=== PATIENT | female | born 1965 | race Caucasian/White ===

== ENCOUNTER 2017-05-17 14:37 | Emergency (ER) | payer MEDICAID, SELFPAY ==
[2017-05-17 14:38] VITALS: BP 155/81; PULSE 76; RESP 17; TEMP 36.8; O2SAT 100; BMI 29.5
[2017-05-17 15:03] VITALS: O2SAT 100
--- NOTE | 2017-05-17 15:03 | EKG12_ITS ---
Test Reason : GEN ILLNESS Blood Pressure : / mmHG Vent. Rate : 058 BPM Atrial Rate : 058 BPM P-R Int : 140 ms QRS Dur : 078 ms QT Int : 394 ms P-R-T Axes : 023 000 063 degrees QTc Int : 386 ms Sinus bradycardia Septal infarct , age undetermined Abnormal ECG Confirmed by NICHOLAS WHITE, SOHAN ([id number]), associate entertainment editor PAVITHRA CARO ([id number]) on 05/21/2017 2:32:33 PM Referred By: JOSEPH Confirmed By:SOHAN PETERSON MD
--- NOTE | 2017-05-17 15:06 | ED.VISSUMM ---
- ER Visit Summary Date of Service: 05/17/17 Chief Complaint: [] Fatigue since she is going to pass out symptoms for years History of Present Illness: The patient is a 51 F [] reports that 2 weeks ago she slipped on ice she has had a lumbar back pain, addition she has other musculoskeletal pains involving her shoulders neck. These have been exacerbated since the fall further she has a's history of syncope near syncope and she feels that when she stands up she feels if she going to pass out she has not passed out, he did not fall or injure herself except slipping on ice as above she has had extensive prior evaluation for the sense of syncope according to her record she has had negative cardiac cath negative cardiac tilt table test, negative cardiac echogram, she reports she had additional tests in [place] that included other echograms other cardiac studies and she wore a property assessment monitor for a month and was told there was no clear etiology for her sense of his near syncope. She has no history of NV PE or DVT review of systems a been negative It is possible that the back pain is causing her to feel fatigued and exacerbating her sense of chronic syncope Physical Examination: [] Signs are normal she is awake and alert her head exams normal neck is normal lungs are clear heart tones are normal abdomen soft nontender she has full range of motion of all 4 extremities. Her back she has vague low lumbar back pain no T spine pain cervical spine pain and no headache no head trauma her NIH is actually 0 Test Results: [] Emergency Department Course and Treatment: [] Conversation with the patient she has chronic sense of fatigue and weakness and near passing out sensation she is actually never passed out she has a prior negative extensive evaluation as above I explained to obtain screening labs lumbar spine x-ray IV fluids and proceed from there she is currently taking Tylenol and Motrin for the different musculoskeletal pain she has Patient studies EKGs are all generally unremarkable see those reports, the lumbar spine x-ray show multilevel DJD no acute fracture the DJD appears stable All the above to the patient and her explained at this time she can stay on her all of her medications including ibuprofen and Tylenol for her back pain and other musculoskeletal painful areas, we discussed this chronic sense of fatigue and sense of near syncope had an extensive prior negative workup and there is nothing additionally can be done to the emergency department and have asked her to follow-up for all of her complaints with her physicians in the next few days Treatment Plan: [] Disposition: [] Stable Impression: [] back tender fourdrinier pain related to fall DJD lumbar spine, history of fatigue and history of sense of wanting to pass out This note was generated with Stream dictation software. It may contain incorrect words, spelling, and punctuation that were not noted in review of the chart prior to signing ED Disposition - Plan for ED Patient: Chief Complaint: General Illness Referrals: Care Physician,No Primary [Primary Care Provider] -
--- NOTE | 2017-05-17 15:15 | RAD_ITS ---
STUDY: X-RAY CHEST REASON FOR EXAM: Female, 51 years old. Patient fell 1 week ago. Pain in ribs and lower back. TECHNIQUE: Single AP portable view of the chest. COMPARISON: 08.08.16 FINDINGS: The lungs are clear and expanded. There is no demonstrated pleural abnormality. There is mild cardiac enlargement. Normal mediastinum and verna. Normal visualized pulmonary arteries. Normal visualized aortic arch and descending thoracic aorta. Normal visualized thoracic spine. Normal visualized ribs, clavicles, and shoulders. There is no demonstrated abnormality of the visualized soft tissue structures of the upper abdomen. RAD/Chest 1 View (Portable) IMPRESSION: There is mild cardiac enlargement. Electronically Signed: Ranjit Marquez MD at 16:20 EST , Service support ,
--- NOTE | 2017-05-17 15:17 | RAD_ITS ---
STUDY: X-RAY - LUMBAR SPINE REASON FOR EXAM: Female, 51 years old. Patient fell 1 week ago. Pain entire lower back. TECHNIQUE: 3 view(s) of the lumbar spine were obtained. COMPARISON: 05/19/2012 FINDINGS: Normal lumbar lordosis. There is scoliosis. There is a normal alignment of the vertebrae. Stool throughout the colon. There is multilevel endplate spondylosis of the lumbar vertebrae. There is multi-level degenerative disc disease with multi-level disc space narrowing. The soft tissue structures are unremarkable. RAD/Lumbar Spine 2 or 3 Views IMPRESSION: Degenerative changes of the spine, as detailed above. These are stable. Electronically Signed: Ranjit Marquez MD at 16:22 EST , Service support ,
[2017-05-17 15:18] LABS: Absolute Lymphocyte Count 1.88 X10^3/ul (0.83-4.51); Absolute Neutrophil Count 3.7 X10^3/uL (2.0-7.7); Basophil# 0.02 X10^3/uL; Basophil% 0.3 % (0-1); Eosinophil# 0.17 X10^3/uL; Eosinophils% 2.6 % (0-5); Hematocrit 40.6 % (37-47); Hemoglobin 13.3 g/dl (12.0-15.0); Lymphocyte # 1.88 X10^3/ul (4.0); Lymphocyte % 28.9 % (19-41); Mean Corp Hgb Conc 32.8 g/gl (32-36); Mean Corpuscular Hgb 30.4 pg (27.0-32.0); Mean Corpuscular Volume 92.7 fL (81-99); Mean Platelet Vol. 9.1 fl (6.2-12.0); Monocyte# 0.69 X10^3/uL; Monocyte% 10.6 % (0-10); Neutrophil # 3.73 X10^3/uL (2.7-7.7); Neutrophil % 57.4 % (47-70); Platelet Count 392 K/mm3 (150-450); RBC Distribution Width CV 12.6 % (11.6-14.6); RBC Distribution Width SD 42.5 fl (35.1-43.9); Red Blood Count 4.38 M/mm3 (4.2-5.4); White Blood Count 6.5 K/mm3 (4.4-11.0)
[2017-05-17 15:26] LABS: POSITIVE COUNT NO; POSITIVE DIFFERENTIAL NO; POSITIVE MORPHOLOGY NO
[2017-05-17] MEDS: 0.9% Normal Saline 1,000 ML 250 ML IV (15:31)
[2017-05-17 15:47] LABS: Anion Gap 8 (5-15); BUN 14 mg/dL (7-18); BUN/Creat Ratio 16.5 RATIO (10-20); Calcium,Total 8.8 mg/dL (8.5-10.1); Chloride 109 mmol/L (98-107); Creatinine, Serum 0.85 mg/dL (0.55-1.02); EST Glomerular Filtration Rate 75 mL/min (>60); Est Glom Filt Rate - Afr Amer 91 mL/min (>60); Estimated Creatinine Clearance 81.83 ml/min; Glucose 90 mg/dL (74-106); Potassium 3.8 mmol/L (3.5-5.1); Sodium Level 140 mmol/L (136-145)
--- NOTE | 2017-05-17 16:41 | ED.DEP ---
ED Disposition - Plan for ED Patient: Chief Complaint: General Illness Instructions: Relieving Back Pain, ED Dizziness UKO, ED Syncope Vasovagal, ED Near Syncope Unkn, ED Vertigo Unspecified Referrals: Care Physician,No Primary [Primary Care Provider] - Andreas Conroy MD [STAFF PHYSICIAN] -
[2017-05-17 16:59] VITALS: BP 110/61; PULSE 66; RESP 16; O2SAT 98
== END 2017-05-17 17:00 | disposition home or self-care (01) ==
PROVIDERS: Emergency Provider Emergency Medicine
DX: M54.5 Low back pain (principal); M47.896 Other spondylosis, lumbar region; R55 Syncope and collapse; Z79.899 Other long term (current) drug therapy
CPT/HCPCS: 71045; 72100; 80048; 84484; 85025; 93005; 96360; 99284; J7030; A4216

== ENCOUNTER 2017-07-18 12:04 | Emergency (ER) | payer MEDICAID, SELFPAY ==
[2017-07-18 12:05] VITALS: BP 160/102; PULSE 84; RESP 14; TEMP 36.9; O2SAT 100; BMI 29.5
--- NOTE | 2017-07-18 12:41 | ED.VISSUMM ---
- ER Visit Summary Date of Service: 07/18/17 Chief Complaint: Vaginal bleeding that started last evening at 2100. History of Present Illness: The patient is a 51 F who states she menstruates monthly. She is sexually active. She states she is having severe mid lower cramping abdominal/pelvic pain. She states she is saturating a tampon per hour. She reports orthostatic symptoms and everything in my power to prevent from passing out. She denies passage of clots. She denies shortness of breath or dyspnea on exertion. She denies chest pain. She denies orthopnea or PND. She denies bruising easily or problems with bleeding. She is on no anticoagulant. She has not had a pelvic exam in greater than 5 years. She states she has never had an abnormal Pap smear. Physical Examination: Pleasant middle-aged woman with an elevated blood pressure 160/102. HEENT exam is unremarkable. Conjunctive is pink. Heart is regular without murmur, gallop or rub. S1 and S2 are normal. Lungs are clear to auscultation with good movement of air bilaterally. Abdomen is slightly prominent with pain to palpation suprapubic region. There is no guarding or rebound tenderness. There are no bruising or rash noted. There is no CVA tenderness noted. Pelvic exam was performed. There is blood noted in the vaginal vault. The cervix and also appear irregular. Bimanual exam is remarkable for regular texture to the cervix and an enlarged uterus approximately size of a grapefruit. There is no cervical motion tenderness. Test Results: See is unremarkable. Serum test is negative. Ultrasound reveals a retro-verted uterus with a thickened endometrium. Uterus is slightly enlarged. Emergency Department Course and Treatment: IV was established. Orthostatic vital signs were obtained. CBC was obtained to evaluate her H&H and a pelvic exam was ordered. Awaiting female ultimate hoops scoreboard operator In light of the pelvic findings and ultrasound was obtained to evaluate the enlarged tender uterus. Treatment Plan: Referral to Dr. Lexii Brooks since she is a [facility] patient. Disposition: Discharged home with appropriate home-going instruction and anti-inflammatory agents for her discomfort Impression: Abnormal heavy painful vaginal bleeding This note was generated with Superbacation software. It may contain incorrect words, spelling, and punctuation that were not noted in review of the chart prior to signing ED Disposition - Plan for ED Patient: Disposition: Home or Assisted Living Chief Complaint: Vag Bleeding Instructions: ED Bleed Irregular Vaginal Prescriptions: Naproxen [Naprosyn] 500 mg PO BID #14 tab Referrals: Care Physician,No Primary [Primary Care Provider] - Lexii Brooks MD [STAFF PHYSICIAN] - 3-5 Days Additional Instructions: Prescription was electronically transmitted to [facility] pharmacy; the pharmacy you designated as your preferred pharmacy
--- NOTE | 2017-07-18 12:44 | ED.DCSUM_ITS ---
- ER Visit Summary Date of Service: 07/18/17 Chief Complaint: Vaginal bleeding that started last evening at 2100. History of Present Illness: The patient is a 51 F who states she menstruates monthly. She is sexually active. She states she is having severe mid lower cramping abdominal/pelvic pain. She states she is saturating a tampon per hour. She reports orthostatic symptoms and everything in my power to prevent from passing out. She denies passage of clots. She denies shortness of breath or dyspnea on exertion. She denies chest pain. She denies orthopnea or PND. She denies bruising easily or problems with bleeding. She is on no anticoagulant. She has not had a pelvic exam in greater than 5 years. She states she has never had an abnormal Pap smear. Physical Examination: Pleasant middle-aged woman with an elevated blood pressure 160/102. HEENT exam is unremarkable. Conjunctive is pink. Heart is regular without murmur, gallop or rub. S1 and S2 are normal. Lungs are clear to auscultation with good movement of air bilaterally. Abdomen is slightly prominent with pain to palpation suprapubic region. There is no guarding or rebound tenderness. There are no bruising or rash noted. There is no CVA tenderness noted. Pelvic exam was performed. There is blood noted in the vaginal vault. The cervix and also appear irregular. Bimanual exam is remarkable for regular texture to the cervix and an enlarged uterus approximately size of a grapefruit. There is no cervical motion tenderness. Test Results: See is unremarkable. Serum test is negative. Ultrasound reveals a retro-verted uterus with a thickened endometrium. Uterus is slightly enlarged. Emergency Department Course and Treatment: IV was established. Orthostatic vital signs were obtained. CBC was obtained to evaluate her H&H and a pelvic exam was ordered. Awaiting female acoustic intelligence specialist In light of the pelvic findings and ultrasound was obtained to evaluate the enlarged tender uterus. Treatment Plan: Referral to Dr. Lexii Brooks since she is a [facility] patient. Disposition: Discharged home with appropriate home-going instruction and anti- inflammatory agents for her discomfort Impression: Abnormal heavy painful vaginal bleeding This note was generated with PhotoTheraation software. It may contain incorrect words, spelling, and punctuation that were not noted in review of the chart prior to signing ED Disposition - Plan for ED Patient: Disposition: Home or Assisted Living Chief Complaint: Vag Bleeding Instructions: ED Bleed Irregular Vaginal Prescriptions: Naproxen [Naprosyn] 500 mg PO BID #14 tab Referrals: Care Physician,No Primary [Primary Care Provider] - Lexii Brooks MD [STAFF PHYSICIAN] - 3-5 Days Additional Instructions: Prescription was electronically transmitted to [facility] pharmacy; the pharmacy you designated as your preferred pharmacy
[2017-07-18 12:57] LABS: Absolute Lymphocyte Count 1.91 X10^3/ul (0.83-4.51); Absolute Neutrophil Count 5.1 X10^3/uL (2.0-7.7); Basophil# 0.03 X10^3/uL; Basophil% 0.4 % (0-1); Eosinophil# 0.17 X10^3/uL; Eosinophils% 2.1 % (0-5); Hematocrit 42.1 % (37-47); Hemoglobin 14.2 g/dl (12.0-15.0); Lymphocyte # 1.91 X10^3/ul (4.0); Mean Corp Hgb Conc 33.7 g/gl (32-36); Mean Corpuscular Hgb 31.5 pg (27.0-32.0); Mean Corpuscular Volume 93.3 fL (81-99); Mean Platelet Vol. 9.1 fl (6.2-12.0); Monocyte# 0.76 X10^3/uL; Monocyte% 9.6 % (0-10); Neutrophil # 5.05 X10^3/uL (2.7-7.7); Neutrophil % 63.5 % (47-70); Platelet Count 383 K/mm3 (150-450); RBC Distribution Width CV 13.3 % (11.6-14.6); RBC Distribution Width SD 44.1 fl (35.1-43.9); Red Blood Count 4.51 M/mm3 (4.2-5.4)
[2017-07-18 12:59] LABS: POSITIVE COUNT NO; POSITIVE DIFFERENTIAL NO; POSITIVE MORPHOLOGY NO
--- NOTE | 2017-07-18 13:03 | US_ITS ---
STUDY: ULTRASOUND OF THE FEMALE PELVIS - COMPLETE REASON FOR EXAM: Female, 51 years old. Abnormal uterine bleeding. Enlarged uterus. LMP: July 17, 2017. TECHNIQUE: Transvaginal TECHNICAL QUALITY: Adequate. COMPARISON: None. FINDINGS: The uterus is retroverted and is in a midline position. The uterus measures 8.8 cm x 6.6 x 5.3 cm. There are several nabothian cysts in the cervix. The endometrium is thickened and measures 12 mm in thickness, and is heterogeneous (striated). There is no demonstrated endometrial mass. There is no demonstrated myometrial mass. I.U.D. - The patient does not have an I.U.D. The right ovary is visualized. The right ovary measures 4.2 cm x 3.5 cm x 2.2 cm. There is no right ovarian cyst or ovarian mass. There is no visualized right adnexal mass or complex lesion. There is normal arterial and normal venous vascularity. The left ovary is visualized. The left ovary measures 2.0 cm x 1.5 cm x 1.2 cm. There is no left ovarian cyst or ovarian mass. There is no visualized left adnexal mass or complex lesion. There is normal arterial and normal venous vascularity. There is no fluid in the cul-de-sac. Polycystic ovary disease: No. US/Transvaginal Non- IMPRESSION: Thickened endometrium. Electronically Signed: Nolberto Stover MD at 14:41 EDT Tel [phone], Service support ,
[2017-07-18 13:11] LABS: Pregnancy, Serum, hCG Quali. NEGATIVE Negative (0-9 Nonpreg)
[2017-07-18 15:04] VITALS: BP 116/81; PULSE 64; RESP 16; O2SAT 98
== END 2017-07-18 15:07 | disposition home or self-care (01) ==
PROVIDERS: Emergency Provider Emergency Medicine
DX: N93.9 Abnormal uterine and vaginal bleeding, unspecified (principal); N85.2 Hypertrophy of uterus; I10 Essential (primary) hypertension; E66.9 Obesity, unspecified; Z79.899 Other long term (current) drug therapy
CPT/HCPCS: 76830; 84703; 85025; 99283; A4216

== ENCOUNTER 2017-07-23 21:14 | Emergency (ER) | payer MEDICAID, SELFPAY ==
[2017-07-23 21:16] VITALS: BP 142/83; PULSE 68; RESP 20; TEMP 36.7; O2SAT 97; BMI 29.5
[2017-07-23 22:52] LABS: Amphetamine Urine VISTA NEGATIVE (<1000 ng/mL); Barbiturate Urine VISTA NEGATIVE (< 200 ng/mL); Benzodiazepine Urine VISTA NEGATIVE (< 200 ng/mL); Cocaine Urine VISTA NEGATIVE (< 300 ng/mL); Ecstacy Urine VISTA NEGATIVE (< 500 ng/mL); Methadone Urine VISTA NEGATIVE (< 300 ng/mL); PCP Urine VISTA NEGATIVE (< 25 ng/mL); THC Urine VISTA NEGATIVE (< 50 ng/mL); Vista UDS pH Range 6
--- NOTE | 2017-07-23 22:52 | ED.DCSUM_ITS ---
- ER Visit Summary Date of Service: 07/23/17 Chief Complaint: [] Feeling overwhelmed and anxious History of Present Illness: The patient is a 51 F stated she has been feeling overwhelmed and anxious for last couple years. She has been dealing with somatic dysfunction that has been worked up multiple times in cannot find a reason for her physical symptoms. She has a new doctor that she is going to see August 20. She has been feeling stress from the situational factors. No counselor would requesting one. She is no longer working. She does not drink or do illegal drugs. She is not suicidal or homicidal. Physical Examination: Vital signs reviewed General: Well-nourished well-developed Head: Normocephalic atraumatic Eyes: Pupils equal round and reactive to light extraocular movements intact ENT: TMs clear no hemotympanum no trauma Neck: Nontender full range of motion Cardiovascular: Regular rate rhythm no murmurs normal S1-S2 Respiratory: No distress clear to auscultation bilaterally chest nontender Abdomen: Soft nontender nondistended normal bowel sounds no masses Back: Nontender no CVA tenderness Extremities: Nontender active range of motion ?4 extremities no trauma Skin: Normal color no trauma Neuro alert oriented cranial nerves II through XII intact normal strength sensation reflexes Test Results: [] Emergency Department Course and Treatment: [] Discussed with the patient we can give her referral to counseling center. I do not feel she needs to be emergently seen. She will follow-up as an outpatient. This appears to be just emotional lability Treatment Plan: [] Disposition: [] Impression: [] Emotional lability This note was generated with [employer] dictation software. It may contain incorrect words, spelling, and punctuation that were not noted in review of the chart prior to signing ED Disposition - Plan for ED Patient: Chief Complaint: Mental Health Referrals: Care Physician,No Primary [Primary Care Provider] -
--- NOTE | 2017-07-23 22:52 | ED.DEP ---
ED Disposition - Plan for ED Patient: Disposition: Home or Assisted Living Chief Complaint: Mental Health Instructions: Your Body's Response to Anxiety Referrals: Care Physician,No Primary [Primary Care Provider] - Counseling,Center [GROUP OF PHYSICIANS] -
[2017-07-23 22:57] VITALS: PULSE 65; RESP 18
== END 2017-07-23 23:00 | disposition home or self-care (01) ==
PROVIDERS: Emergency Provider Emergency Medicine
DX: R45.86 Emotional lability (principal); I10 Essential (primary) hypertension; E66.9 Obesity, unspecified; Z79.899 Other long term (current) drug therapy; Z86.711 Personal history of pulmonary embolism
CPT/HCPCS: 80307; 99283

== ENCOUNTER → 2017-09-12 17:18 | Outpatient (CLI) | payer MEDICAID, SELFPAY ==
--- NOTE | 2017-09-12 15:30 | BRBX_PTH ---
PATIENT: PARDEEP GUNN LOC: [facility] U#:[id number] AGE/SX: 59/F ROOM: RE09/12/[address]: Dr. Radha Fajardo MD : [id number] BED: DIS: SPEC #: [id number] RECD: 09/15/17 07:44 STATUS: MEGHAN MINA #: [id number] PAULINA: 09/12/17 15:[address]: Radha Fajardo DEPT: SURGICAL PATHOLOGY RECD BY: Luis A Almonte ENTERED: 09/15/17 07:44 SP TYPE: BREAST BX OTHR DR: No Primary Care Phys Tissues: Left breast, NOS Procedures: Surgery Specimen Level IV HEADER OPERATION: Ultrasound-guided left breast needle core biopsy PRE-OP DIAGNOSIS: Abnormal mammogram/ultrasound TISSUE SUBMITTED: Left breast needle core biopsy ISCHEMIC TIME: 5 minutes FIXATION TIME: 76 hours MICROSCOPIC DIAGNOSIS Left breast, ultrasound-guided needle core biopsy: Fragments of fatty benign breast tissue with focal dense fibrosis and changes suggestive of fibroadenoma. Negative for atypia or malignancy. SOLANGE:josiah 09/16/17 COMMENT Correlation with clinical, radiologic findings and appropriate follow up are necessary. MICROSCOPIC DESCRIPTION Slides are reviewed. GROSS DESCRIPTION Received in fixative is one container labeled with the patient's name and designated left breast biopsy. The specimen consists of multiple elongated fragments of vincent-yellow fibroadipose tissue that in aggregate measure 2 x 1 x 0.1 cm. The entire specimen is submitted in one cassette. / SJ:josiah 09/15/17 TC:5 CPT: 21844
== END ==
PROVIDERS: Visit Provider Surgery
DX: R92.8 Other abnormal and inconclusive findings on diagnostic imaging of breast (principal)
CPT/HCPCS: 88305

== ENCOUNTER 2017-10-13 12:56 | Emergency (ER) | payer MEDICAID, SELFPAY ==
[2017-10-13 12:57] VITALS: BP 123/83; PULSE 69; RESP 18; TEMP 36.6; O2SAT 99; BMI 30.9
--- NOTE | 2017-10-13 16:09 | EKG12_ITS ---
Test Reason : CP Blood Pressure : / mmHG Vent. Rate : 063 BPM Atrial Rate : 063 BPM P-R Int : 144 ms QRS Dur : 092 ms QT Int : 392 ms P-R-T Axes : -15 -06 055 degrees QTc Int : 401 ms Normal sinus rhythm Nonspecific ST abnormality Abnormal ECG Confirmed by KRISTIAN WHITE, DREW ([id number]), purchasing expeditor PAVITHRA CARO ([id number]) on 10/15/2017 2:08:57 PM Referred By: Matt Couch Confirmed By:DREW TOWNSEND MD
--- NOTE | 2017-10-13 16:10 | RAD_ITS ---
STUDY: X-RAY CHEST REASON FOR EXAM: Female, 52 years old. Weakness, chest pain TECHNIQUE: PA and lateral views of the chest. COMPARISON: 05/17/17 FINDINGS: The lungs are clear and expanded. There is no demonstrated pleural abnormality. Normal size heart. Normal mediastinum and verna. Normal visualized pulmonary arteries. Normal visualized aortic arch and descending thoracic aorta. Normal visualized thoracic spine. Normal visualized ribs, clavicles, and shoulders. There is no demonstrated abnormality of the visualized soft tissue structures of the upper abdomen. RAD/Chest 1 View (Portable) IMPRESSION: Normal x-ray examination of the chest. Electronically Signed: Eduin Allison MD at 16:19 EDT , Service support ,
[2017-10-13 16:23] VITALS: BP 138/71; PULSE 58; RESP 22; O2SAT 99
[2017-10-13] MEDS: Aspirin 81 MG TAB.CHEW 324 MG PO (16:31)
[2017-10-13 16:33] VITALS: O2SAT 100
[2017-10-13 16:54] LABS: Absolute Lymphocyte Count 2.15 X10^3/ul (0.83-4.51); Basophil# 0.02 X10^3/uL; Basophil% 0.2 % (0-1); Eosinophil# 0.07 X10^3/uL; Eosinophils% 0.7 % (0-5); Hematocrit 42.4 % (37-47); Hemoglobin 14.3 g/dl (12.0-15.0); Lymphocyte # 2.15 X10^3/ul (4.0); Lymphocyte % 21.5 % (19-41); Mean Corp Hgb Conc 33.7 g/gl (32-36); Mean Corpuscular Hgb 31.6 pg (27.0-32.0); Mean Corpuscular Volume 93.6 fL (81-99); Mean Platelet Vol. 9.5 fl (6.2-12.0); Monocyte# 0.72 X10^3/uL; Monocyte% 7.2 % (0-10); Neutrophil # 7.04 X10^3/uL (2.7-7.7); Neutrophil % 70.2 % (47-70); Platelet Count 381 K/mm3 (150-450); RBC Distribution Width CV 12.8 % (11.6-14.6); RBC Distribution Width SD 42.6 fl (35.1-43.9); Red Blood Count 4.53 M/mm3 (4.2-5.4)
[2017-10-13 17:04] LABS: POSITIVE COUNT NO; POSITIVE DIFFERENTIAL NO; POSITIVE MORPHOLOGY NO
[2017-10-13 17:09] LABS: Anion Gap 10 (5-15); BUN 6 mg/dL (7-18); BUN/Creat Ratio 7.8 RATIO (10-20); Chloride 107 mmol/L (98-107); Creatinine, Serum 0.77 mg/dL (0.55-1.02); EST Glomerular Filtration Rate 83 mL/min (>60); Est Glom Filt Rate - Afr Amer 101 mL/min (>60); Estimated Creatinine Clearance 86.21 ml/min; Glucose 91 mg/dL (74-106); Potassium 3.6 mmol/L (3.5-5.1); Sodium Level 143 mmol/L (136-145)
--- NOTE | 2017-10-13 17:25 | ED.DCSUM_ITS ---
- ER Visit Summary Date of Service: 10/13/17 Chief Complaint: Headache, nausea, presyncope History of Present Illness: The patient is a 52 F who has had the above symptoms for 2 years. They have been getting worse over the past week. She states that she feels near syncopal and nauseous when she wakes up after sleeping and after naps. She saw her doctor today who told her to come in because he felt that she is not getting enough oxygen to her brain. She wore a Holter monitor a year ago and it showed episodes of bradycardia which were correlating with her symptoms but she never followed up after that. She has no chest pain or shortness of breath. Physical Examination: Vital signs reviewed. HEENT exam unremarkable. Heart is regular rate and rhythm without murmurs. Lungs are clear to auscultation. Abdomen is soft and nontender. Extremities reveal no edema. Skin exam normal. Neurologic exam normal. Test Results: EKG was sinus rhythm with a rate of 63. No ST changes. Chest x- ray normal. Labs are normal Emergency Department Course and Treatment: I explained the patient that her workup here today is normal. She is wondering about a ultrasound of her carotid arteries to see if this would evaluate the blood flow to her brain. I told her that there is no indication for this emergently. She needs to follow- up with a commercial relief driver. She will be given cardiology follow-up Treatment Plan: [] Disposition: Discharge Impression: Near syncope This note was generated with Scuttledog dictation software. It may contain incorrect words, spelling, and punctuation that were not noted in review of the chart prior to signing ED Disposition - Plan for ED Patient: Chief Complaint: Weakness Referrals: Zay Alvarado MD [Primary Care Provider] -
--- NOTE | 2017-10-13 17:25 | ED.DEP ---
ED Disposition - Plan for ED Patient: Disposition: Home or Assisted Living Chief Complaint: Weakness Instructions: ED Near Syncope Unkn Referrals: Zay Alvarado MD [Primary Care Provider] - Steve Sandoval MD [STAFF PHYSICIAN] -
[2017-10-13 18:18] VITALS: BP 126/75; PULSE 61; RESP 17; O2SAT 97
--- NOTE | 2017-10-13 18:36 | ED.RN ---
at 1825 this rn went to d/c pt. pt reports to this rn concern that her sx are worsening over the past year. pt reports bradycardia when sleeping, and other arrhythmias. pt informed of results by dr. ferrera and cleared for d/c. this rn spoke with pt about her not following up with care a year ago when she had been admitted to [facility]. this rn and pt spoke about how long sx have been going on and that they are intermittent, not constant. pt educated not to drive if feeling worse and to return to ed with any new or worsened sx. this rn spoke with dr. ferrera concerning pt sx and visit today. dr. ferrera reports educating pt on importance of follow up with cardiology, and that pt does not meet admission criteria. this rn informed charge nurse hoang of pt concerns, hoang to address issue. will continue to monitor.
== END 2017-10-13 18:19 | disposition home or self-care (01) ==
PROVIDERS: Emergency Provider Emergency Medicine; Family Provider Family Medicine; PCP Family Medicine
DX: R55 Syncope and collapse (principal); R00.1 Bradycardia, unspecified; I10 Essential (primary) hypertension; Z79.899 Other long term (current) drug therapy
CPT/HCPCS: 71045; 80048; 84484; 85025; 93005; 99285; A4216

== ENCOUNTER 2017-11-17 08:13 | Day surgery (SDC) | payer MEDICAID, SELFPAY ==
[2017-11-14 13:13] VITALS: BMI 31.0
[2017-11-14 16:12] LABS: Hematocrit 39.3 % (37-47); Hemoglobin 13.3 g/dl (12.0-15.0); Mean Corp Hgb Conc 33.8 g/gl (32-36); Mean Corpuscular Hgb 31.9 pg (27.0-32.0); Mean Corpuscular Volume 94.2 fL (81-99); Mean Platelet Vol. 9.3 fl (6.2-12.0); Platelet Count 326 K/mm3 (150-450); RBC Distribution Width CV 13.1 % (11.6-14.6); RBC Distribution Width SD 45.2 fl (35.1-43.9); Red Blood Count 4.17 M/mm3 (4.2-5.4); White Blood Count 7.5 K/mm3 (4.4-11.0)
[2017-11-14 16:13] LABS: Scan Indicated on CBC? Y/N NO
[2017-11-14 16:35] LABS: Anion Gap 10 (5-15); BUN 8 mg/dL (7-18); Calcium,Total 8.5 mg/dL (8.5-10.1); Chloride 109 mmol/L (98-107); EST Glomerular Filtration Rate 80 mL/min (>60); Est Glom Filt Rate - Afr Amer 96 mL/min (>60); Estimated Creatinine Clearance 82.98 ml/min; Glucose 89 mg/dL (74-106); Sodium Level 144 mmol/L (136-145)
== END 2017-11-17 10:14 ==
LOC: CLSP 08:14
PROVIDERS: Family Provider Family Medicine; PCP Family Medicine; Visit Provider Internal Medicine Cardiovascular Disease
DX: R55 Syncope and collapse (principal); R00.1 Bradycardia, unspecified; I10 Essential (primary) hypertension; E66.9 Obesity, unspecified
CPT/HCPCS: 33282; 36415; 80048; 85027; 99152; J7040

== ENCOUNTER 2018-01-17 20:44 | Emergency (ER) | payer MEDICAID, SELFPAY ==
[2018-01-17 20:45] VITALS: BP 162/79; PULSE 74; RESP 20; TEMP 36.7; O2SAT 96; BMI 30.4
--- NOTE | 2018-01-17 21:36 | ED.VISSUMM ---
- ER Visit Summary Date of Service: 01/17/18 Chief Complaint: Anxiety History of Present Illness: The patient is a 52 F who presents with anxiety. She has been under significantly more stress today. Her is in the hospital after a heart attack. She also states that she is having issues with her son. She complains of headache increased blood pressure nausea and mild chest pain. She did have some improvement of her headache with Tylenol. She on multiple occasions repetitively stated that she really does feel this is all related to her anxiety and she just does not know what to do about her anxiety. Physical Examination: Afebrile blood pressure 162/79 vitals otherwise normal Heart regular rate and rhythm Lungs are clear Abdomen soft Alert Tearful and anxious Test Results: EKG shows sinus rhythm at a rate of 67 with septal Q waves. Emergency Department Course and Treatment: I discussed with the patient that her symptoms certainly could be related to anxiety but I cannot rule out other pathology without workup. I recommended laboratory studies and chest x-ray. The patient refuses. She does understand that I cannot rule out more serious pathology. She vocalized understanding. She is insistent that this is all related to anxiety and would just like treated for anxiety. Given her acute significant stressors I do not feel benzodiazepines would be an appropriate. She does not want to take a dose here because she has to drive home. She was given a prescription and ongoing medication. We will give her a short course of Ativan and she was advised to follow-up with her primary care physician. She does understand return for new or worsening symptoms and was discharged home. Treatment Plan: [] Disposition: Discharge Impression: Stress reaction Chest pain Palpitations This note was generated with [employer] dictation software. It may contain incorrect words, spelling, and punctuation that were not noted in review of the chart prior to signing ED Disposition - Plan for ED Patient: Chief Complaint: Palpitations Referrals: Zay Alvarado MD [Primary Care Provider] -
--- NOTE | 2018-01-17 21:38 | ED.DEP ---
ED Disposition - Plan for ED Patient: Chief Complaint: Palpitations Instructions: ED Palpitations, ED Stress React Prescriptions: Lorazepam [Ativan] 1 mg PO TID #6 tab Referrals: Zay Alvarado MD [Primary Care Provider] -
--- NOTE | 2018-01-17 21:39 | EKG12_ITS ---
Test Reason : CP Blood Pressure : / mmHG Vent. Rate : 067 BPM Atrial Rate : 067 BPM P-R Int : 138 ms QRS Dur : 084 ms QT Int : 372 ms P-R-T Axes : 054 -03 064 degrees QTc Int : 393 ms Normal sinus rhythm with sinus arrhythmia Septal infarct , age undetermined Abnormal ECG Confirmed by NICHOLAS WHITE, SOHAN ([id number]), editor farm journal ULYSSES LYN ([id number]) on 01/20/2018 11:20:01 AM Referred By: JOCELYN/NAZARIO Confirmed By:SOHAN PETERSON MD
[2018-01-17] MEDS: LORazepam 1 MG Tablet 2 MG PO (21:58)
[2018-01-17 22:03] VITALS: BP 138/81; PULSE 62; RESP 17; O2SAT 94
== END 2018-01-17 22:04 | disposition home or self-care (01) ==
LOC: ED 21:47
PROVIDERS: Emergency Provider Emergency Medicine; Family Provider Family Medicine; PCP Family Medicine
DX: F43.9 Reaction to severe stress, unspecified (principal); R07.9 Chest pain, unspecified; R00.2 Palpitations; R51 Headache; R11.0 Nausea; R03.0 Elevated blood-pressure reading, without diagnosis of hypertension; Z79.899 Other long term (current) drug therapy
CPT/HCPCS: 93005; 99282

== ENCOUNTER 2018-07-01 20:06 | Emergency (ER) | payer MEDICAID, SELFPAY ==
[2018-05-05 14:32] VITALS: BMI 31.7
[2018-07-01] VITALS (7 sets, daily range): BP systolic 119–144; BP diastolic 64–81; PULSE 57–76; RESP 16–25; TEMP 37–37.6; O2SAT 57–100; BMI 32.0
--- NOTE | 2018-07-01 20:50 | CT_ITS ---
STUDY: CT ABDOMEN AND PELVIS WITHOUT CONTRAST REASON FOR EXAM: Female, 52 years old. Pain RADIATION DOSAGE (If Supplied By Facility): CTDIvol = ( 17.05 ) mGy, DLP = ( 860.62 ) mGycm TECHNIQUE: Transaxial images were obtained from the dome of the diaphragm to the symphysis pubis without oral contrast, and without intravenous contrast. Sagittal and coronal images were reconstructed. Individualized dose optimization techniques were used for this CT. COMPARISON: None. FINDINGS: Evaluation of the abdominal viscera is limited in the absence of intravenous contrast. There is atelectasis at the lung bases. The visualized portions of the heart and pericardium are within normal limits. There are no calcified gallstones present. The liver demonstrates an unremarkable unenhanced appearance. The spleen is normal in size. The pancreas demonstrates an unremarkable unenhanced appearance. The adrenal glands are within normal limits. The left kidney is located in the pelvis. There are no renal or ureteral stones. There is no hydronephrosis. Normal visualized stomach. There is no bowel obstruction or inflammation. The appendix is not visualized, but there are no findings to suggest acute appendicitis. The aorta is normal in caliber. There is an intrauterine device noted. There is no abdominal or pelvic free air, free fluid, fluid collection or lymphadenopathy. There are no destructive osseous lesions. CT/Abdomen/Pelvis without Cont IMPRESSION: No acute abdominal or pelvic pathology demonstrated on this noncontrast CT. Pelvic left kidney. Electronically Signed: Nicko Winslow, at 22:09 EDT Tel , Service support ,
--- NOTE | 2018-07-01 20:50 | EKG12_ITS ---
Test Reason : ABD PAIN Blood Pressure : / mmHG Vent. Rate : 070 BPM Atrial Rate : 070 BPM P-R Int : 138 ms QRS Dur : 084 ms QT Int : 386 ms P-R-T Axes : 039 -06 056 degrees QTc Int : 416 ms Normal sinus rhythm Septal infarct (cited on or before 17-JAN-2018), age undetermined Abnormal ECG Confirmed by KRISTIAN WHITE, DREW ([id number]), brands editor VIVEK PIERRE ([id number]) on 07/03/2018 11:00:28 AM Referred By: LAURA/GIGI Confirmed By:DREW TOWNSEND MD
--- NOTE | 2018-07-01 20:50 | RAD_ITS ---
STUDY: X-RAY CHEST REASON FOR EXAM: Female, 52 years old. Cough. TECHNIQUE: Single frontal view of the chest. COMPARISON: October 13, 2017 FINDINGS: There is grossly stable bibasilar scarring and/or atelectasis. There is mild cardiomegaly. There is a loop recorder projecting over the left cardiac border. Normal mediastinum and verna. Normal visualized pulmonary arteries. Normal visualized aortic arch and descending thoracic aorta. Normal visualized thoracic spine. Normal visualized ribs, clavicles, and shoulders. There is no demonstrated abnormality of the visualized soft tissue structures of the upper abdomen. RAD/Chest 1 View (Portable) IMPRESSION: Mild cardiomegaly. Electronically Signed: Garima Higuera MD at 21:41 EDT Tel , Service support ,
[2018-07-01 21:00] LABS: Absolute Lymphocyte Count 3.18 X10^3/ul (0.83-4.51); Absolute Neutrophil Count 5.8 X10^3/uL (2.0-7.7); Basophil# 0.02 X10^3/uL; Basophil% 0.2 % (0-1); Eosinophil# 0.18 X10^3/uL; Eosinophils% 1.8 % (0-5); Lymphocyte # 3.18 X10^3/ul (4.0); Lymphocyte % 31.9 % (19-41); Mean Corp Hgb Conc 34.1 g/gl (32-36); Mean Corpuscular Hgb 32.5 pg (27.0-32.0); Mean Corpuscular Volume 95.1 fL (81-99); Mean Platelet Vol. 9.4 fl (6.2-12.0); Monocyte# 0.75 X10^3/uL; Monocyte% 7.5 % (0-10); Neutrophil # 5.83 X10^3/uL (2.7-7.7); Neutrophil % 58.4 % (47-70); Platelet Count 348 K/mm3 (150-450); RBC Distribution Width CV 12.4 % (11.6-14.6); RBC Distribution Width SD 42.9 fl (35.1-43.9); Red Blood Count 4.31 M/mm3 (4.2-5.4)
[2018-07-01 21:02] LABS: POSITIVE COUNT NO; POSITIVE DIFFERENTIAL NO; POSITIVE MORPHOLOGY NO
[2018-07-01] MEDS: 0.9% Normal Saline 1,000 ML 1000 ML IV (21:16)
[2018-07-01 21:23] LABS: ALB/GLOB Ratio 1.2 RATIO (0.9-2.4); AST(SGOT) 32 U/L (15-37); Alanine Aminotransfer ALT/SGPT 45 U/L (13-56); Albumin, Serum 3.7 g/dL (3.2-5.0); Alkaline Phosphatase 74 U/L (45-117); Anion Gap 7 (5-15); BUN 12 mg/dL (7-18); BUN/Creat Ratio 12.1 RATIO (10-20); Calcium,Total 7.8 mg/dL (8.5-10.1); Chloride 107 mmol/L (98-107); EST Glomerular Filtration Rate 62 mL/min (>60); Est Glom Filt Rate - Afr Amer 75 mL/min (>60); Estimated Creatinine Clearance 68.77 ml/min; Globulin 3.1 g/dL (2.2-4.2); Glucose 108 mg/dL (74-106); Potassium 3.7 mmol/L (3.5-5.1); Protein, Total 6.8 g/dL (6.4-8.2); Sodium Level 138 mmol/L (136-145)
[2018-07-01 21:32] LABS: Bacteria 0 SEEN /hpf (None Seen); Mucous, Urine 0 SEEN /hpf (<or=2+); Red Blood Cells-Urine 0 SEEN /hpf (0-5); White Blood Cells 0 SEEN /hpf (0-5)
[2018-07-01 21:35] LABS: Color, Urine Yellow (Yellow); Glucose, Dipstick Normal (Normal); Ketone-Dipstick Negative (Negative); Leukocyte Esterase-Dipstick 25 /ul (Negative); Nitrite-Dipstick Negative (Negative); Occult Blood-Urine Negative /ul (Negative); Protein-Dipstick 15 mg/dl (Negative); Specific Gravity, Urine 1.015 (1.002-1.030); Urine Bilirubin Dipstick Negative (Negative); Urine Clarity Clear (Clear); Urine Urobilinogen Normal (Normal)
[2018-07-01 21:47] LABS: Lactic Acid 1.6 mmol/L (0.4-2.0)
[2018-07-01 21:56] LABS: Squamous Epithelial Cells - UA 0-5 SEEN /hpf (5-10)
[2018-07-01] MEDS: Morphine 4 MG/ML Syringe IV (22:16)
[2018-07-01] MEDS: Ondansetron 4 MG/2 ML Vial IV (22:17)
[2018-07-01 22:41] LABS: Lipase 288 U/L (73-393)
--- NOTE | 2018-07-01 23:21 | ED.VISSUMM ---
- ER Visit Summary Date of Service: 07/01/18 Chief Complaint: [Abdominal pain, body aches, cough] History of Present Illness: The patient is a 52 F [presents the emergency department 2-day history of generalized fatigue. Patient states that she is had a dry cough and just diffuse body aches. Patient complains of pain in her back and abdomen intermittently. Patient had one episode of vomiting yesterday but none since. She has not had any diarrhea. She denies any chest pain or shortness of breath. Patient has had multiple sick contacts at work. She denies sore throat or ear pain.] Physical Examination: [HEENT-PERRLA, EOMI. Cranial nerves II through XII grossly intact. TMs clear. Mucous membranes moist. No adenopathy. Cardiovascular-regular rate and rhythm without murmur or ectopy Lungs-clear to auscultation, chest wall stable without crepitus or subcu emphysema Abdomen-normoactive bowel sounds, soft. Patient has diffuse tenderness with guarding. There is no rebound, rigidity, or perineal signs. Extremities-intact ?4, normal range of motion, normal pulses, atraumatic] Test Results: [EKG obtained arrival shows sinus rhythm with a ventricular rate 70 bpm with old septal infarct noted. CBC with differential showed a white count of 10.0, hemoglobin 14, hematocrit 41, placed 348. Chemistries unremarkable. LFTs were normal. Lipase was normal. Urinalysis was normal. Troponin was less than 0.015. Lactate was normal at 1.6. Influenza was negative. Chest x-ray showed some mild cardiomegaly. CT scan of the abdomen pelvis without contrast showed nothing acute.] Emergency Department Course and Treatment: [Patient was medicated with morphine and Zofran. Patient was given normal saline.] Treatment Plan: [Patient will be given a prescription for Helotes and Zofran. Patient advised to push fluids.] Disposition: [Discharged home in stable condition] Impression: [Abdominal pain Viral syndrome] This note was generated with [employer] dictation software. It may contain incorrect words, spelling, and punctuation that were not noted in review of the chart prior to signing ED Disposition - Plan for ED Patient: Referrals: Zay Alvarado MD [Primary Care Provider] -
--- NOTE | 2018-07-01 23:23 | ED.DEP ---
ED Disposition - Plan for ED Patient: Instructions: ED Abdominal Pain Unkn Cause, ED Viral Syndrome Prescriptions: Hydrocodone Bitart/Apap 5-325 [[place] 5MG-325MG] 1 tab PO Q4H PRN PRN 2 Days #10 tab PRN Reason: Pain Ondansetron [Zofran Odt] 4 mg PO Q8H PRN PRN #10 tab PRN Reason: Nausea Referrals: Zay Alvarado MD [Primary Care Provider] - 3-5 Days
[2018-07-01] MEDS: HYDROcodone Bitartrate/Apap 5/325 Tablet PO (23:36)
[2018-07-01] MEDS: Ondansetron ODT 4 MG Tablet PO (23:38)
== END 2018-07-01 23:49 | disposition home or self-care (01) ==
PROVIDERS: Emergency Provider Emergency Medicine; Family Provider Family Medicine; PCP Family Medicine
DX: R10.9 Unspecified abdominal pain (principal); B34.9 Viral infection, unspecified; R05 Cough; R51 Headache; M54.9 Dorsalgia, unspecified; I10 Essential (primary) hypertension
CPT/HCPCS: 71045; 74176; 80053; 81001; 83605; 83690; 84484; 85025; 87804; 93005; 96361; 96374; 96375; 99285; J7030; A4216; J2405

== ENCOUNTER 2018-08-06 11:39 | Emergency (ER) | payer MEDICAID, SELFPAY ==
[2018-07-01 20:08] VITALS: BMI 32.0
[2018-08-06 11:41] VITALS: BP 148/80; PULSE 92; RESP 15; TEMP 37.5; O2SAT 100; BMI 31.8
--- NOTE | 2018-08-06 11:55 | EKG12_ITS ---
Test Reason : WEAKNESS Blood Pressure : / mmHG Vent. Rate : 088 BPM Atrial Rate : 088 BPM P-R Int : 146 ms QRS Dur : 076 ms QT Int : 352 ms P-R-T Axes : 043 -02 080 degrees QTc Int : 425 ms Normal sinus rhythm Nonspecific ST and T wave abnormality Abnormal ECG Confirmed by JOSELYN HOOPER ([id number]), society editor VIVEK PIERRE ([id number]) on 08/10/2018 2:10:49 PM Referred By: Confirmed By:JOSELYN HOOPER
--- NOTE | 2018-08-06 12:28 | CT_ITS ---
STUDY: CT BRAIN WITHOUT CONTRAST REASON FOR EXAM: Female, 52 years old. Dizziness. Shortness of breath. Fatigue. RADIATION DOSAGE (If Supplied By Facility): CTDIvol = ( 44.99 ) mGy, DLP = ( 745.49 ) mGycm TECHNIQUE: Transaxial CT imaging of the brain was performed without administration of intravenous contrast material. Individualized dose optimization techniques were used for this CT. COMPARISON: Comparison is made with prior study November 01, 2015. FINDINGS: Normal soft tissue structures. Normal calvarium. Normal size ventricles and extra-axial spaces for the patient's age. Normal white matter tracts of the cerebral hemispheres. Normal basal ganglia and thalami. Normal brainstem. Normal cerebellum. There is no intracranial hemorrhage. There are no findings of an acute ischemic infarction. Normal visualized paranasal sinuses. CT/Brain/Head without Contrast IMPRESSION: Normal unenhanced CT scan of the brain. Electronically Signed: Nolberto Stover, at 14:32 EDT , Service support ,
--- NOTE | 2018-08-06 12:28 | RAD_ITS ---
STUDY: X-RAY CHEST REASON FOR EXAM: Female, 52 years old. Increasing shortness of breath. TECHNIQUE: PA and lateral views of the chest. COMPARISON: Comparison is made with prior study dated July 01, 2018. FINDINGS: EKG liquids are seen. Hyperinflation. There is no demonstrated pleural abnormality. Normal size heart. A loop recorder device is once again seen overlying the left cardiac border. Normal mediastinum and verna. Normal visualized pulmonary arteries. Normal visualized aortic arch and descending thoracic aorta. Normal visualized thoracic spine. Normal visualized ribs, clavicles, and shoulders. There is no demonstrated abnormality of the visualized soft tissue structures of the upper abdomen. RAD/Chest PA and Lateral IMPRESSION: Hyperinflation. The lungs are clear. Electronically Signed: Nolberto Stover, at 14:12 EDT , Service support ,
--- NOTE | 2018-08-06 12:34 | ED.VISSUMM ---
- ER Visit Summary Date of Service: 08/06/18 Chief Complaint: Fatigue and shortness of breath History of Present Illness: The patient is a 52 F who presents with fatigue and shortness of breath that has been getting worse over the past 3 days. Patient states she feels like she has tightness in her chest. Patient states her breathing is worse with coughing and with going upstairs. Patient states she has been taking Mucinex with no relief. Patient went to the urgent care today and was given an aerosol. Patient states she was feeling weak and was then referred to the emergency department from the urgent care. Physical Examination: Vital signs are stable. Patient is afebrile. Patient is in no acute distress. Oral mucosa is pink and moist. Neck is supple. Trachea is midline. There is no JVD noted. Heart was regular rate and rhythm. Lungs are clear and equal bilaterally. Abdomen is soft. Bowel sounds are normal. There is some mild upper abdominal tenderness. There is no rebound or guarding noted. Cranial nerves II through XII are intact. There are no focal motor or sensory deficits noted. Test Results: EKG showed normal sinus rhythm with a rate of 88. There are no acute ST or T wave changes. There are nonspecific ST-T wave changes. There is some flattening of the T waves diffusely compared to previous EKG dated 07/01/2018. CBC, basic metabolic profile, urinalysis, d-dimer were obtained and were all normal. Emergency Department Course and Treatment: Patient was given IV fluids. Patient was feeling better on reevaluation. Patient was instructed to follow-up with her primary care physician in 5 to 7 days. Patient understood and was agreeable with the plan. All questions were answered. Disposition: Discharge home Impression: General weakness This note was generated with [employer] dictation software. It may contain incorrect words, spelling, and punctuation that were not noted in review of the chart prior to signing ED Disposition - Plan for ED Patient: Disposition: Home or Assisted Living Diagnosis: General weakness Instructions: ED Weakness [facility] [place]: Zay Alvarado MD [Primary Care Provider] - 3-5 Days
--- NOTE | 2018-08-06 12:38 | ED.DCSUM_ITS ---
- ER Visit Summary Date of Service: 08/06/18 Chief Complaint: Fatigue and shortness of breath History of Present Illness: The patient is a 52 F who presents with fatigue and shortness of breath that has been getting worse over the past 3 days. Patient states she feels like she has tightness in her chest. Patient states her breathing is worse with coughing and with going upstairs. Patient states she has been taking Mucinex with no relief. Patient went to the urgent care today and was given an aerosol. Patient states she was feeling weak and was then referred to the emergency department from the urgent care. Physical Examination: Vital signs are stable. Patient is afebrile. Patient is in no acute distress. Oral mucosa is pink and moist. Neck is supple. Trachea is midline. There is no JVD noted. Heart was regular rate and rhythm. Lungs are clear and equal bilaterally. Abdomen is soft. Bowel sounds are normal. There is some mild upper abdominal tenderness. There is no rebound or guarding noted. Cranial nerves II through XII are intact. There are no focal motor or sensory deficits noted. Test Results: EKG showed normal sinus rhythm with a rate of 88. There are no acute ST or T wave changes. There are nonspecific ST-T wave changes. There is some flattening of the T waves diffusely compared to previous EKG dated 07/01/2018. CBC, basic metabolic profile, urinalysis, d-dimer were obtained and were all normal. Emergency Department Course and Treatment: Patient was given IV fluids. Patient was feeling better on reevaluation. Patient was instructed to follow-up with her primary care physician in 5 to 7 days. Patient understood and was agreeable with the plan. All questions were answered. Disposition: Discharge home Impression: General weakness This note was generated with [employer] dictation software. It may contain incorrect words, spelling, and punctuation that were not noted in review of the chart prior to signing ED Disposition - Plan for ED Patient: Disposition: Home or Assisted Living Diagnosis: General weakness Instructions: ED Weakness [facility] [place] Referrals: Zay Alvarado MD [Primary Care Provider] - 3-5 Days
[2018-08-06] MEDS: 0.9% Normal Saline 1,000 ML 1000 ML IV (12:48)
[2018-08-06 12:58] LABS: Absolute Lymphocyte Count 1.28 X10^3/ul (0.83-4.51); Basophil# 0.01 X10^3/uL; Basophil% 0.1 % (0-1); Eosinophil# 0.06 X10^3/uL; Eosinophils% 0.7 % (0-5); Hematocrit 44.6 % (37-47); Lymphocyte # 1.28 X10^3/ul (4.0); Lymphocyte % 15.3 % (19-41); Mean Corp Hgb Conc 33.6 g/gl (32-36); Mean Corpuscular Hgb 31.4 pg (27.0-32.0); Mean Corpuscular Volume 93.3 fL (81-99); Mean Platelet Vol. 9.2 fl (6.2-12.0); Monocyte# 1.01 X10^3/uL; Monocyte% 12.1 % (0-10); Neutrophil # 5.98 X10^3/uL (2.7-7.7); Neutrophil % 71.6 % (47-70); POSITIVE COUNT NO; POSITIVE DIFFERENTIAL NO; POSITIVE MORPHOLOGY NO; Platelet Count 287 K/mm3 (150-450); RBC Distribution Width CV 12.6 % (11.6-14.6); RBC Distribution Width SD 42.5 fl (35.1-43.9); Red Blood Count 4.78 M/mm3 (4.2-5.4); White Blood Count 8.4 K/mm3 (4.4-11.0)
[2018-08-06 13:11] LABS: Anion Gap 7 (5-15); BUN 7 mg/dL (7-18); BUN/Creat Ratio 7.3 RATIO (10-20); Calcium,Total 8.8 mg/dL (8.5-10.1); Chloride 106 mmol/L (98-107); Creatinine, Serum 0.96 mg/dL (0.55-1.02); EST Glomerular Filtration Rate 65 mL/min (>60); Est Glom Filt Rate - Afr Amer 78 mL/min (>60); Estimated Creatinine Clearance 71.64 ml/min; Glucose 96 mg/dL (74-106); Potassium 3.7 mmol/L (3.5-5.1); Sodium Level 139 mmol/L (136-145)
[2018-08-06 13:12] LABS: D-Dimer Quantitative (DVT/PE) 0.27 FEU/ug/m (0.27-0.49)
[2018-08-06 13:41] LABS: Color, Urine Yellow (Yellow); Glucose, Dipstick Normal (Normal); Ketone-Dipstick Negative (Negative); Leukocyte Esterase-Dipstick 100 /ul (Negative); Mucous, Urine 0 SEEN /hpf (<or=2+); Nitrite-Dipstick Negative (Negative); Occult Blood-Urine Negative /ul (Negative); Protein-Dipstick Negative (Negative); Red Blood Cells-Urine 0 SEEN /hpf (0-5); Specific Gravity, Urine 1.005 (1.002-1.030); Squamous Epithelial Cells - UA 0 SEEN /hpf (5-10); Urine Bilirubin Dipstick Negative (Negative); Urine Clarity Clear (Clear); Urine Urobilinogen Normal (Normal)
[2018-08-06 13:49] LABS: Bacteria RARE /hpf (None Seen); White Blood Cells 0-5 SEEN /hpf (0-5); Yeast-Urine RARE /hpf (None Seen)
[2018-08-06 14:20] VITALS: BP 128/86; PULSE 72; RESP 15; O2SAT 98
[2018-08-06 15:41] VITALS: BP 140/88; PULSE 72
== END 2018-08-06 15:49 | disposition home or self-care (01) ==
PROVIDERS: Emergency Provider Emergency Medicine; Family Provider Family Medicine; PCP Family Medicine
DX: R53.1 Weakness (principal); R07.9 Chest pain, unspecified; R06.00 Dyspnea, unspecified; R51 Headache; J02.9 Acute pharyngitis, unspecified; R05 Cough; R11.0 Nausea; Z79.899 Other long term (current) drug therapy
CPT/HCPCS: 70450; 71046; 80048; 81001; 85025; 85379; 93005; 96360; 96361; 99285; J7030; A4216

== ENCOUNTER 2018-09-30 23:57 | Observation (INO) | payer MEDICAID, SELFPAY ==
[2018-09-30 23:57] VITALS: BP 132/83; PULSE 64; RESP 18; TEMP 37.3; O2SAT 100; BMI 31.5
[2018-10-01] VITALS (9 sets, daily range): BP systolic 119–148; BP diastolic 63–75; PULSE 49–67; RESP 16–20; TEMP 37–37.2; O2SAT 95–98; BMI 30.4
--- NOTE | 2018-10-01 00:02 | EKG12_ITS ---
Test Reason : CP Blood Pressure : / mmHG Vent. Rate : 061 BPM Atrial Rate : 061 BPM P-R Int : 144 ms QRS Dur : 082 ms QT Int : 382 ms P-R-T Axes : 023 -04 045 degrees QTc Int : 384 ms Normal sinus rhythm Septal infarct , age undetermined Abnormal ECG Confirmed by NICHOLAS WHITE, SOHAN ([id number]), graphics editor VIVEK PIERRE ([id number]) on 10/05/2018 1:29:39 PM Referred By: Confirmed By:SOHAN PETERSON MD
--- NOTE | 2018-10-01 00:02 | RAD_ITS ---
HISTORY: CPChest PainRAD - Chest EXAM: XR Chest 1 View: COMPARISON: August 06, 2018 FINDINGS: # of images incl. paperwork: 1 No change to left chest wall implanted cardiac monitoring lead. Old device Lungs are clear. Heart is not enlarged. Bones are normal. Pulmonary vascularity is distinct. No effusions. RAD/Chest 1 View (Portable) IMPRESSION: Normal. at 0034 Reported and signed by: Serg Mcdonnell MD Electronically Signed: Serg Mcdonnell MD at 0:33 EDT Tel , Service support ,
[2018-10-01 00:16] LABS: Absolute Lymphocyte Count 2.65 X10^3/ul (0.83-4.51); Basophil# 0.02 X10^3/uL; Basophil% 0.3 % (0-1); Eosinophil# 0.13 X10^3/uL; Eosinophils% 1.7 % (0-5); Hematocrit 39.6 % (37-47); Hemoglobin 13.4 g/dl (12.0-15.0); Lymphocyte # 2.65 X10^3/ul (4.0); Lymphocyte % 35.4 % (19-41); Mean Corp Hgb Conc 33.8 g/gl (32-36); Mean Corpuscular Hgb 32.1 pg (27.0-32.0); Mean Corpuscular Volume 94.7 fL (81-99); Mean Platelet Vol. 9.3 fl (6.2-12.0); Monocyte# 0.67 X10^3/uL; Monocyte% 8.9 % (0-10); Neutrophil % 53.4 % (47-70); Platelet Count 300 K/mm3 (150-450); RBC Distribution Width CV 12.4 % (11.6-14.6); RBC Distribution Width SD 42.6 fl (35.1-43.9); Red Blood Count 4.18 M/mm3 (4.2-5.4); White Blood Count 7.5 K/mm3 (4.4-11.0)
--- NOTE | 2018-10-01 00:16 | ED.DCSUM_ITS ---
- ER Visit Summary Date of Service: 10/01/18 Chief Complaint: Chest pain History of Present Illness: The patient is a 52 F presenting with chest pain. She states this started this evening. She states she initially noted that her blood pressure was high. She complained of tingling all over. She then deve loped pain in her midsternal and left chest. She had associated shortness of breath and diaphoresis. She had nausea with no vomiting. She was given aspirin and Zofran prior to arrival. She has a family history of early heart disease. Denies PE/DVT risk factors. She was seen at [facility] a couple of days ago for similar complaints and left AGAINST MEDICAL ADVICE. Physical Examination: Vitals are stable. Patient is afebrile. Alert no acute distress. HEENT exam is unremarkable. Neck is supple. Lungs are clear and equal bilaterally. Heart is regular rate and rhythm. Abdomen is soft nontender nondistended. Extremities are unremarkable. Skin is warm and dry. No focal neurologic deficit. Remainder of exam is unremarkable. Emergency Department Course and Treatment: EKG is sinus rhythm rate of 61 with no acute ischemic changes. Chest x-ray shows no acute process. CBC, chemistries unremarkable. Troponin is negative. On reevaluation, patient is chest pain-free. This is now her second episode in the past couple of days. She was discussed with the hospitalist for observation. Disposition: Observation Impression: Chest pain This note was generated with [employer] dictation software. It may contain incorrect words, spelling, and punctuation that were not noted in review of the chart prior to signing ED Disposition - Plan for ED Patient: Referrals: Zay Alvarado MD [Primary Care Provider] -
[2018-10-01 00:31] LABS: Anion Gap 5 (5-15); BUN 11 mg/dL (7-18); BUN/Creat Ratio 10.6 RATIO (10-20); Calcium,Total 8.4 mg/dL (8.5-10.1); Chloride 107 mmol/L (98-107); Creatinine, Serum 1.04 mg/dL (0.55-1.02); EST Glomerular Filtration Rate 59 mL/min (>60); Est Glom Filt Rate - Afr Amer 71 mL/min (>60); Estimated Creatinine Clearance 66.13 ml/min; Glucose 140 mg/dL (74-106); Potassium 3.6 mmol/L (3.5-5.1); Sodium Level 138 mmol/L (136-145)
[2018-10-01 00:34] LABS: POSITIVE COUNT NO; POSITIVE DIFFERENTIAL NO; POSITIVE MORPHOLOGY NO
--- NOTE | 2018-10-01 01:05 | PCM.HP.STD ---
Problem List (1) Chest pain Status: Acute History of Present Illness Date of Admission: 10/01/18 Chief Complaint: chest pain The patient is a 52 year old F with a significant history of hypertension and bradycardia who presented to the emergency department with chest pain. Her chest pain started few hours before presentation. His symptoms first started with a tingling sensation in all extremities and in her face. Thereafter she checked her blood pressure and her blood pressure was elevated. Reportedly her blood pressure was 179/95. She then noticed a severe sharp intermittent chest pain coming from her left chest at the exact site where her loop recorder was placed. The chest pain was nonradiating. Associated with her symptoms is nausea without vomiting; and diaphoresis. Patient took 2 tablets of baby aspirin at home. Also paramedics gave her additional 2 tablets. Reportedly patient recently went to [facility] because of a tingling sensation. She denied that at presentation at [facility] she had any chest pain. Reportedly patient was offered a transferred for admission but she declined. She reported her father had heart attack probably when he was less than 55 years. Also both her grandfathers at her and maternal and paternal side had heart attacks; exact ages she did not know. Importantly she had a loop recorder placed because 2 years ago she was having presyncopal episode and was diagnosed with arrhythmia at a hospital in [place]. She reported that the loop recorder was placed about a year ago. 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 Obesity (Chronic) E66.9 Hypertension (Chronic) I10 Bursitis disorder M71.9 bilateral hips Enthesopathy M77.9 Allergies amoxicillin [From Augmentin] Allergy (Verified 08/19/18 13:04) Hives clavulanic acid [From Augmentin] Allergy (Verified 08/19/18 13:04) Hives tetracycline Adverse Reaction (Verified 08/19/18 13:04) Upset Stomach Home Medications: Ambulatory Orders Medication Instructions Recorded Multivitamins,Therapeutic 1 tab PO DAILY 04/02/17 [Multivitamin] Surgical History: Surgical History (Last Reviewed 10/01/18 @ 08:33 by Ilan Rivera MD) History of Z98.891 Surgical History: - - Psychiatric History: Anxiety, Depression Lives: With Family Smoking Status: Never smoker Alcohol: None - *Family History Maternal Family History: Family History (Last Reviewed 10/01/18 @ 08:33 by Ilan Rivera MD) Father Heart disease CAD (coronary artery disease) Mother Diabetes COPD (chronic obstructive pulmonary disease) Paternal Family History: Family History (Last Reviewed 10/01/18 @ 08:33 by Ilan Rivera MD) Father Heart disease CAD (coronary artery disease) Mother Diabetes COPD (chronic obstructive pulmonary disease) History Items: - - father had cad with angioplasty. Review of Systems Constitutional: Denies: Chills, Fever, Weight Change HEENT: Denies: Head Aches, Sinus Congestion, Sinus Drainage Cardiovascular: Reports: Chest Pain. Denies: Palpitations Respiratory: Denies: Cough, Shortness of breath at rest, Sputum production Gastrointestinal: Denies: Abdominal Pain, Nausea, Vomiting Genitourinary: Denies: Dysuria Musculoskeletal: Denies: Joint Pain, Joint Tenderness Skin: Denies: Rash, Wounds Neurological: Reports: Tingling. Denies: Focal weakness, Numbness Psychiatric: Denies: Depression, Homicidal Ideations, Suicidal Ideations Hematologic/ Lymphatic: Denies: Easy Bruising, Easy Bleeding VTE Information - Inpt Only VTE Present on Admission: No VTE Mechan Device Prophylaxis: None VTE Pharm Prophylaxis ordered?: Yes - Physical Exam General: Alert, Oriented x3, Cooperative HEENT: Atraumatic, PERRLA, EOMI, Normocephalic Neck: Supple, No JVD, Negative Carotid Bruits Lungs: Clear to auscultation, Normal air movement Cardiovascular: Regular rate, No murmurs Abdomen: Bowel Sounds Present, Soft, Non Tender Extremities: No edema, Capillary Refill Less than 3 Seconds Skin: No rashes, No breakdown Musculoskeletal: No Tenderness to Palpation of Joints or Extremities Neurological: Cranial nerves II-XII grossly intact Psych/Mental Status: Normal Affect, Appropriate Vital Signs Temp Pulse Resp BP Pulse Ox 99.2 F H 64 18 132/83 H 100 09/30/18 23:57 09/30/18 23:57 09/30/18 23:57 09/30/18 23:57 09/30/18 23:57 Oxygen Delivery Method Room Air Weight: 96.8 kg Body Mass Index (BMI) 31.5 Laboratory Tests Past 24 Hrs 10/01/18 10/01/18 00:00 00:00 WBC 7.5 RBC 4.18 L Hgb 13.4 Hct 39.6 MCV 94.7 MCH 32.1 H MCHC 33.8 RDW 12.4 RDW Differential 42.6 Plt Count 300 MPV 9.3 Immature Gran % (Auto) 0.300 Neut % (Auto) 53.4 Lymph % (Auto) 35.4 Ralls % (Auto) 8.9 Eos % (Auto) 1.7 Baso % (Auto) 0.3 Absolute Neuts (auto) 4.0 Absolute Lymphs (auto) 2.65 Total Counted Not Reportable Sodium 138 Potassium 3.6 Chloride 107 Carbon Dioxide 26.0 Anion Gap 5 BUN 11 Creatinine 1.04 H Estim Creat Clear Calc 66.13 Est GFR (MDRD) Af Amer 71 Est GFR (MDRD) Non-Af 59 L BUN/Creatinine Ratio 10.6 Glucose 140 H Calcium 8.4 L Troponin I < 0.015 Assessment/Plan All Active Problems (Last Reviewed 10/01/18 @ 02:36 by Ilan Rivera MD) Status post placement of implantable loop recorder (Acute 11/17/17) Chest pain (Acute) Dizzy spells (Acute) Junctional (helio) bradycardia (Acute) The patient is a 52 year old F with a significant history of hypertension and bradycardia who presented to the emergency department with chest pain; and also had tingling of her extremities. Chest pain Chest pain could be cardiac source. Other etiologies include anxiety. Admit to a monitored bed on PCU CXR independently reviewed confirms no acute cardiopulmonary process. Chest x-ray was independently reviewed. I agree with his interpretation. EKG was independently reviewed. Her EKG did not show any ST or T wave abnormalities. ASA 81 mg p.o. daily SL NTG 0.4 mg prn as needed for chest pain We will check lipid panel. Statin: Started on high intensity statin Serial cardiac enzymes Stat EKG as needed for chest pain Stress test in the AM if the cardiac enzymes are negative Hypertension On presentation her blood pressure was fairly stable Trend DVT prophylaxis Subcutaneous Lovenox Code Visit OBSV E&M: [id number] Initial observation care L3
--- NOTE | 2018-10-01 02:42 | EKG12_ITS ---
Test Reason : ADMIT Blood Pressure : / mmHG Vent. Rate : 051 BPM Atrial Rate : 051 BPM P-R Int : 146 ms QRS Dur : 086 ms QT Int : 434 ms P-R-T Axes : 017 -07 051 degrees QTc Int : 400 ms Sinus bradycardia Confirmed by NICHOLAS WHITE, SOHAN ([id number]), editor at large VIVEK PIERRE ([id number]) on 10/05/2018 1:46:19 PM Referred By: PADMINI Confirmed By:SOHAN PETERSON MD
[2018-10-01] MEDS: Atorvastatin Calcium 80 MG Tablet PO (04:27)
[2018-10-01] MEDS: Aspirin E.C. 81 MG Tablet PO (06:46)
[2018-10-01 08:00] LABS: Cholesterol 140 mg/dL (200); High Density Lipoprotein 40 mg/dL; Triglycerides 148 mg/dL; Very Low Density Lipoprotein 30 mg/dL (5-40)
[2018-10-01] MEDS: Enoxaparin 40 MG/0.4 ML Syringe SC (09:59)
[2018-10-01 10:03] LABS: Hemoglobin A1c 5.5 % (4.2-6.3)
[2018-10-01 10:23] LABS: D-Dimer Quantitative (DVT/PE) < 0.27 FEU/ug/m (0.27-0.49)
--- NOTE | 2018-10-01 11:11 | DCINST_ITS ---
You will use the following diet at home:: No restrictions Your food should be the consistency of: Regular Discharge Activity: Return to Normal Activity Allergies/Adverse Reactions: Allergies amoxicillin [From Augmentin] Allergy (Verified 08/19/18 13:04) Hives clavulanic acid [From Augmentin] Allergy (Verified 08/19/18 13:04) Hives tetracycline Adverse Reaction (Verified 08/19/18 13:04) Upset Stomach Medications to take at Discharge Multivitamins,Therapeutic [Multivitamin] 1 tab PO DAILY 04/02/17 Primary Care Physician: Zay Alvarado MD [Primary Care Provider] - Please follow up with your Primary Care Physician in: in 5-7 days Test Results: Test results from this visit will be discussed in further detail at your follow- up appointment, if applicable. Proposed Discharge Date: 10/01/18
--- NOTE | 2018-10-01 11:14 | DS.PCM_ITS ---
Discharge Date and Diagnosis Date of Admission: 10/01/18 Date of Discharge: 10/01/18 - Primary Discharge Diagnosis Chest pain - Secondary Discharge Diagnosis Chronic Problems (Last Updated 10/01/18 @ 11:12 by Gumaro Latham MD) Status post placement of implantable loop recorder (Chronic 11/17/17) Obesity (Chronic) Hypertension (Chronic) Hospital Course and Treatment Imaging Results: Clinical Impression(s) from Imaging Studies Chest X-Ray 10/01/18 00:02 IMPRESSION: Normal. at 0034 Reported and signed by: Serg Mcdonnell MD Electronically Signed: Serg Mcdonnell MD at 0:33 EDT Tel , Service support , Operations: None Summary of Care Provided: The patient is a 52 year old F who presented with chest pain. Patient was placed on a monitored bed VT was ruled out with serial cardiac enzymes. Patient had apparently undergone recent nuclear stress test in [place] which was negative. She also had a left heart catheterization performed 3 years ago which did not show any obstructive lesions. Also ordered further studies with a d-dimer which came back negative. Patient was therefore discharged home instructed to follow- up with PCP for noncardiac work-up of her chest pain Objective: GENERAL: cooperative HEENT: Atraumatic; moist oral mucosa EYES; Anicteric, Normal Conjunctiva NECK; supple, normal thyroid, no distended JVD. RESPIRATORY: Diminished to auscultation bilaterally, CARDIOVASCULAR: Regular S1 S2, no audible murmurs GI: soft, non-tender, normoactive bowel sounds, SKIN: No Rash PSYCH; Normal affect - Physical Exam Vital Signs Temp Pulse Resp BP Pulse Ox 98.8 F 60 18 119/70 95 10/01/18 09:00 10/01/18 11:12 10/01/18 09:00 10/01/18 09:00 10/01/18 09:00 Oxygen Flow Rate (L/min) 97 Oxygen Delivery Method Room Air Weight: 93.349 kg Body Mass Index (BMI) 30.4 Laboratory Tests Past 24 Hrs 10/01/18 10/01/18 10/01/18 00:00 00:00 03:39 WBC 7.5 RBC 4.18 L Hgb 13.4 Hct 39.6 MCV 94.7 MCH 32.1 H MCHC 33.8 RDW 12.4 RDW Differential 42.6 Plt Count 300 MPV 9.3 Immature Gran % (Auto) 0.300 Neut % (Auto) 53.4 Lymph % (Auto) 35.4 [place] % (Auto) 8.9 Eos % (Auto) 1.7 Baso % (Auto) 0.3 Absolute Neuts (auto) 4.0 Absolute Lymphs (auto) 2.65 Total Counted Not Reportable D-Dimer Quant (PE/DVT) Sodium 138 Potassium 3.6 Chloride 107 Carbon Dioxide 26.0 Anion Gap 5 BUN 11 Creatinine 1.04 H Estim Creat Clear Calc 66.13 Est GFR (MDRD) Af Amer 71 Est GFR (MDRD) Non-Af 59 L BUN/Creatinine Ratio 10.6 Glucose 140 H Hemoglobin A1c 5.5 Calcium 8.4 L Troponin I < 0.015 Triglycerides Cholesterol LDL Cholesterol VLDL Cholesterol HDL Cholesterol 10/01/18 10/01/18 10/01/18 03:39 06:03 10:04 WBC RBC Hgb Hct MCV MCH MCHC RDW RDW Differential Plt Count MPV Immature Gran % (Auto) Neut % (Auto) Lymph % (Auto) [place] % (Auto) Eos % (Auto) Baso % (Auto) Absolute Neuts (auto) Absolute Lymphs (auto) Total Counted D-Dimer Quant (PE/DVT) < 0.27 L Sodium Potassium Chloride Carbon Dioxide Anion Gap BUN Creatinine Estim Creat Clear Calc Est GFR (MDRD) Af Amer Est GFR (MDRD) Non-Af BUN/Creatinine Ratio Glucose Hemoglobin A1c Calcium Troponin I < 0.015 < 0.015 Triglycerides 148 Cholesterol 140 LDL Cholesterol 70 VLDL Cholesterol 30 HDL Cholesterol 40 Discharge Diet: No Restrictions Discharge Activity: Return to Normal Activity Home Medications: Medications to take at Discharge Multivitamins,Therapeutic [Multivitamin] 1 tab PO DAILY 04/02/17 Primary Care Physician: Zay Alvarado MD [Primary Care Provider] - Please follow up with your Primary Care Physician in: in 5-7 days Minutes spent on discharge:: 35 Patient Condition:: Stable Medical Necessity - Tobacco Use Smoking Status: Never smoker Meaningful Use Info Meaningful Use Diagnoses (Choose all that apply): None applicable Code Visit OBSV E&M: 02832 Observation care discharge
== END 2018-10-01 11:13 | disposition home or self-care (01) ==
LOC: ED 10-01 01:42 → PCU 10-01 02:03
PROVIDERS: Admitting Provider Hospitalist; Emergency Provider Emergency Medicine; Family Provider Family Medicine; PCP Family Medicine; Visit Provider Internal Medicine
DX: R07.89 Other chest pain (principal); R06.02 Shortness of breath; E66.9 Obesity, unspecified; Z68.30 Body mass index [BMI] 30.0-30.9, adult; Z71.3 Dietary counseling and surveillance; I10 Essential (primary) hypertension
CPT/HCPCS: 36415; 71045; 80048; 80061; 83036; 84484; 85025; 85379; 93005; 96372; 99218; 99285; G0378; J2405

== ENCOUNTER 2021-08-03 12:42 | Emergency (ER) | payer MEDICARE, MEDICAID, SELFPAY ==
[2021-08-03 12:42] VITALS: BP 127/88; PULSE 90; RESP 18; TEMP 36.6; O2SAT 97; BMI 30.2
[2021-08-03 12:51] VITALS: BP 137/73; PULSE 84; RESP 19; O2SAT 98
[2021-08-03] MEDS: Aspirin 81 MG TAB.CHEW 324 MG PO (13:08)
--- NOTE | 2021-08-03 13:14 | RAD_ITS ---
STUDY: X-RAY CHEST REASON FOR EXAM: Female, 55 years old. Intermittent chest pain and tightness. TECHNIQUE: Single AP portable view of the chest. COMPARISON: Comparison is made with prior study 10/01/2018. FINDINGS: EKG electrodes are seen. Hyperinflation. There is no demonstrated pleural abnormality. Normal size heart. A loop recorder device is seen overlying the left cardiac border. Normal mediastinum and verna. Normal visualized pulmonary arteries. Normal visualized aortic arch and descending thoracic aorta. There are degenerative changes of the visualized thoracic spine. Normal visualized ribs, clavicles, and shoulders. There is no demonstrated abnormality of the visualized soft tissue structures of the upper abdomen. RAD/Chest 1 View (Portable) IMPRESSION: Hyperinflation. The lungs are clear. Electronically Signed: Nolberto Stover MD at 13:38 EDT ,
--- NOTE | 2021-08-03 13:15 | EKG12_ITS ---
Test Reason : CHEST PAIN Blood Pressure : / mmHG Vent. Rate : 080 BPM Atrial Rate : 080 BPM P-R Int : 140 ms QRS Dur : 088 ms QT Int : 362 ms P-R-T Axes : 046 000 063 degrees QTc Int : 417 ms Normal sinus rhythm Low voltage QRS Septal infarct , age undetermined Abnormal ECG Confirmed by KRISTIAN WHITE, DREW ([id number]), offline editor VIVEK PIERRE ([id number]) on 08/06/2021 1:19:39 PM Referred By: SUMIT Confirmed By:DREW TOWNSEND MD
[2021-08-03 13:30] LABS: Absolute Lymphocyte Count 2.06 X10^3/uL (0.83-4.51); Absolute Neutrophil Count 2.7 X10^3/uL (2.0-7.7); Basophil# 0.02 X10^3/uL; Basophil% 0.4 % (0-1); Eosinophil# 0.12 X10^3/uL; Eosinophils% 2.2 % (0-5); Hematocrit 42.9 % (37-47); Hemoglobin 14.8 g/dL (12.0-15.0); Lymphocyte # 2.06 X10^3/ul (0.83-4.51); Lymphocyte % 38.4 % (19-41); Mean Corp Hgb Conc 34.5 g/dL (32-36); Mean Corpuscular Hgb 32.3 pg (27.0-32.0); Mean Corpuscular Volume 93.7 fL (81-99); Mean Platelet Vol. 9.1 fl (6.2-12.0); Monocyte# 0.48 X10^3/uL; Monocyte% 8.9 % (0-10); NRBC Flagged by Analyzer 0 % (0-5); Neutrophil # 2.67 X10^3/uL (2.7-7.7); Neutrophil % 49.7 % (47-70); Platelet Count 374 K/mm3 (150-450); RBC Distribution Width CV 12.1 % (11.6-14.6); Red Blood Count 4.58 M/mm3 (4.2-5.4); White Blood Count 5.4 K/mm3 (4.4-11.0)
[2021-08-03 13:38] LABS: Anion Gap 6 (5-15); BUN 13 mg/dL (7-18); BUN/Creat Ratio 13.9 RATIO (10-20); Calcium,Total 9.5 mg/dL (8.5-10.1); Chloride 109 mmol/L (98-107); Creatinine, Serum 0.94 mg/dL (0.55-1.02); EST Glomerular Filtration Rate 66 mL/min (>60); Est Glom Filt Rate - Afr Amer 80 mL/min (>60); Estimated Creatinine Clearance 70.67 ml/min; Glucose 114 mg/dL (74-106); Potassium 3.8 mmol/L (3.5-5.1); Sodium Level 141 mmol/L (136-145); Troponin-I HS (w/2H Reflex) 5 pg/mL (3.0-54.0)
--- NOTE | 2021-08-03 14:17 | ED.VIS.CHEST ---
HPI History of Present Illness Chief Complaint: Chest Pain Narrative Narrative: Patient presenting with chief complaint of chest pain and shortness of breath. These do not occur together. Patient states he has had a couple of days where her breathing feels off. She is unable to describe to me what that means. She is unable to describe events for which she is having shortness of breath. She is unable to tell me how long these episodes last. She denies a fever or cough. As far as the patient's chest pain is concerned she points to her upper chest wall and states this is intermittent. She is unable to tell me how long the episodes last. I did ask her what is the shortest amount of time it will last and she states I really could not tell you. When I asked the longest time that this could last she states I do not know maybe hours, but to some degree it is just always there and has been for a long time. Patient states that she understands and I am trying to determine the severity but is unable to describe either event. She states she does have a history of bradycardia, hypertension. She has been on a loop recorder before. Patient denies any history of HI, COPD, asthma. [facility] Medical History Anxiety Bursitis disorder Enthesopathy Essential (primary) hypertension Fibromyalgia Junctional (helio) bradycardia Lightheadedness Obesity FRANCES on CPAP Home Medications multivitamin with folic acid 1 tab PO DAILY 04/02/17 [History Last Taken 07/18/17] cyclobenzaprine 5 mg tablet 5 mg PO TID PRN 02/29/20 [History Last Taken Unknown] lorazepam 0.5 mg tablet 0.5 mg PO BID PRN 02/29/20 [History Last Taken Unknown] lisinopril 2.5 mg tablet 5 mg PO DAILY tab 08/29/20 [History Last Taken Unknown] Allergy/AdvReac Type Severity Reaction Status Date / Time amoxicillin [From Augmentin] Allergy Hives Verified 08/03/21 12:44 clavulanic acid Allergy Hives Verified 08/03/21 12:44 [From Augmentin] tetracycline AdvReac Upset Verified 08/03/21 12:44 Stomach Family History Father Heart disease CAD (coronary artery disease) PTCA Mother Diabetes COPD (chronic obstructive pulmonary disease) Surgical History History of History of left heart catheterization (12/2015) History of loop recorder (11/17/17) Social History Smoking Status: Never smoker alcohol intake: never caffeine: Yes Type: tea Number of servings: 3 ROS ROS ED Constitutional Constitutional ED: Denies chills or fever(s) Eyes Eyes: Denies blurry vision or change in vision ENT ENT ED: Denies rhinorrhea Cardiovascular Cardiovascular: Reports as per HPI Respiratory/Chest Respiratory/Chest: Reports dyspnea Gastrointestinal Gastrointestinal: Denies abdominal pain, nausea or vomiting Genitourinary Genitourinary ED: Denies dysuria or hematuria Musculoskeletal Musculoskeletal: Denies myalgias Integumentary Denies rash Neurologic Neurologic: Denies headache(s) or weakness EXAM Physical Exam Const Vital Signs: 08/03/21 12:42 08/03/21 12:51 08/03/21 12:52 Temperature 97.9 F Temperature Source Temporal Pulse Rate 90 84 Respiratory Rate 18 19 H Respiratory Effort Short of Breath Blood Pressure 127/88 H 137/73 H Blood Pressure Mean 101 94 Pulse Ox 97 98 Oxygen Delivery Method Room Air Room Air 08/03/21 13:05 Temperature Temperature Source Pulse Rate Respiratory Rate Respiratory Effort Blood Pressure Blood Pressure Mean Pulse Ox Oxygen Delivery Method Room Air Positive well nourished General Appearance ED: NAD; Negative for pallor HEENT Reports moist mucous membranes normocephalic and atraumatic Eyes PERRL and EOMs intact bilaterally Resp normal respiratory effort and clear to auscultation bilaterally Cardio regular rate and regular rhythm GI normal to inspection, nondistended, normoactive bowel sounds Neuro oriented x3 Sensorium / Orientation: awake and alert Psych mental status grossly normal Skin no rashes or lesions noted General Skin Exam: Negative for jaundice or pallor Heart Score History: Slightly/Non-Suspicious ECG: Normal Age: >45 - <65 years Risk Factors: 1 or 2 Risk Factors Troponin: </= Normal Limit Score: 2 MDM MDM MDM Narrative Medical decision making narrative: Patient presenting with chest pain and shortness of breath which she is unable to describe with any kind of detail. Her vital signs are stable and she is afebrile. Denies any cardiac history. EKG was obtained and on my interpretation this is a normal sinus rhythm with a ventricular rate of 80 bpm without sign of ischemic change or dysrhythmia. Chest x-ray on my interpretation shows no acute cardiopulmonary process and radiologist agree. CBC and BMP unremarkable. High-sensitivity troponin is 5 and the delta troponin is 7. There is no significant interval change. Patient's heart rate is 90, respiration rate 18, O2 sat 97 to 98%. I have low suspicion for PE. Given her symptoms are improved and she has a negative work-up I feel she can be discharged home. She will follow-up with her PCP Sure resolution or return to the ED for new or worsening symptoms. Impression: 1. Chest pain 2. Dyspnea Lab Data Attestation: I reviewed the patient's lab results. Labs: Laboratory Results - last 24 hr 08/03/21 08/03/21 08/03/21 12:58 12:58 15:20 WBC 5.4 RBC 4.58 Hgb 14.8 Hct 42.9 MCV 93.7 MCH 32.3 H MCHC 34.5 RDW Std Deviation 42.0 RDW Coeff of Jackie 12.1 Plt Count 374 MPV 9.1 Immature Gran % (Auto) 0.400 Neut % (Auto) 49.7 Lymph % (Auto) 38.4 [place] % (Auto) 8.9 Eos % (Auto) 2.2 Baso % (Auto) 0.4 Absolute Neuts (auto) 2.7 Absolute Lymphs (auto) 2.06 Nucleated RBC % 0 Sodium 141 Potassium 3.8 Chloride 109 H Carbon Dioxide 26.0 Anion Gap 6 BUN 13 Creatinine 0.94 Estim Creat Clear Calc 70.67 Est GFR (MDRD) Af Amer 80 Est GFR (MDRD) Non-Af 66 BUN/Creatinine Ratio 13.9 Glucose 114 H Calcium 9.5 Troponin I High Sens 5 7 Radiography Diagnostic Testing: Clinical Impression(s) from Imaging Studies Chest X-Ray 08/03/21 13:14 IMPRESSION: Hyperinflation. The lungs are clear. Electronically Signed: Nolberto Stover MD at 13:38 EDT , Discharge Plan Triage Chief Complaint: Chest Pain ED Provider: Zackery Morel Dx/Rx/DC Orders Prescriptions: No Action cyclobenzaprine 5 mg tablet 5 mg PO TID PRNRF: 0 lorazepam 0.5 mg tablet 0.5 mg PO BID PRNRF: 0 lisinopril 2.5 mg tablet 5 mg PO DAILY RF: 0 Hold Instructions: low bp dizzy multivitamin with folic acid 1 TABLET tablet 1 tab PO DAILY RF: 0 Primary Care Provider: Zay Alvarado
[2021-08-03 15:14] LABS: Reflex Troponin-HS? (from REC) Y
[2021-08-03 15:54] LABS: Troponin-I HS 7 pg/mL (3.0-54.0)
[2021-08-03 16:20] VITALS: BP 148/72; PULSE 85
== END 2021-08-03 16:24 | disposition home or self-care (01) ==
PROVIDERS: Emergency Provider Student in an Organized Health Care Education/Training Program; PCP Family Medicine; Visit Provider Student in an Organized Health Care Education/Training Program
DX: R07.9 Chest pain, unspecified (principal); R06.00 Dyspnea, unspecified; I10 Essential (primary) hypertension; M79.7 Fibromyalgia; G47.33 Obstructive sleep apnea (adult) (pediatric); E66.9 Obesity, unspecified; Z79.899 Other long term (current) drug therapy
CPT/HCPCS: 71045; 80048; 84484; 85025; 93005; 99285; A4216

== ENCOUNTER 2021-09-10 10:09 | Day surgery (SDC) | payer BC, MEDICARE, MEDICAID, SELFPAY ==
[2021-09-07 09:07] VITALS: BMI 31.1
--- NOTE | 2021-09-17 16:52 | CL.IE_ITS ---
Patient: PARDEEP GUNN Study Date: 09/10/2021 Performing: Steve Sandoval MD : 1965 Age: 55 Gender: female PROCEDURES PERFORMED [id number])REMOVAL OF LOOP RECORDER INDICATIONS PROCEDURE DETAILS The patient was brought to the Catheterization Lab in the postabsorptive nonsedated state. Infor med consent was obtained prior to the procedure. . The patient tolerated the procedure well. Estimated Blood Loss: 1 ml's IMPLANTED / EX-PLANTED DEVICES DEVICE PARAMETERS CONCLUSIONS / RECOMMENDATIONS Device Conclusions: Successful removal of a patient activated loop recorder. Device Recommendations: Follow up with Primary Care Physician PROCEDURE MEDICATIONS Versed 1 mg IV Fentanyl 50 mcg IV Oxygen: 2 L/min via nasal cannula Clindamycin 900 mg IV 09/10/2021 10:50:59 Signed By Steve Sandoval MD On 09/17/2021 4:51:32 PM Steve Sandoval MD
== END 2021-09-10 14:45 | disposition home or self-care (01) ==
LOC: CLSP 10:10
PROVIDERS: PCP Family Medicine; Referring Provider Internal Medicine Cardiovascular Disease; Visit Provider Internal Medicine Cardiovascular Disease
DX: R00.1 Bradycardia, unspecified (principal); I10 Essential (primary) hypertension; E66.9 Obesity, unspecified; G47.33 Obstructive sleep apnea (adult) (pediatric); Z79.899 Other long term (current) drug therapy
CPT/HCPCS: 33286; 99152; J7030; A4216

== ENCOUNTER 2021-09-10 18:46 | Emergency (ER) | payer BC, MEDICARE, MEDICAID, SELFPAY ==
[2021-09-10 18:47] VITALS: BP 124/71; PULSE 81; RESP 18; TEMP 36.9; O2SAT 98; BMI 30.4
[2021-09-10 19:07] LABS: Absolute Lymphocyte Count 2.71 X10^3/uL (0.83-4.51); Basophil# 0.03 X10^3/uL; Basophil% 0.4 % (0-1); Eosinophil# 0.14 X10^3/uL; Eosinophils% 1.8 % (0-5); Hematocrit 42.3 % (37-47); Hemoglobin 14.6 g/dL (12.0-15.0); Lymphocyte # 2.71 X10^3/ul (0.83-4.51); Lymphocyte % 35.7 % (19-41); Mean Corp Hgb Conc 34.5 g/dL (32-36); Mean Corpuscular Hgb 31.9 pg (27.0-32.0); Mean Corpuscular Volume 92.4 fL (81-99); Mean Platelet Vol. 8.8 fl (6.2-12.0); Monocyte# 0.74 X10^3/uL; Monocyte% 9.7 % (0-10); NRBC Flagged by Analyzer 0 % (0-5); Neutrophil # 3.96 X10^3/uL (2.7-7.7); Neutrophil % 52.3 % (47-70); Platelet Count 356 K/mm3 (150-450); RBC Distribution Width CV 11.9 % (11.6-14.6); RBC Distribution Width SD 40.2 fl (35.1-43.9); Red Blood Count 4.58 M/mm3 (4.2-5.4); White Blood Count 7.6 K/mm3 (4.4-11.0)
[2021-09-10 19:20] LABS: Anion Gap 7 (5-15); BUN 12 mg/dL (7-18); BUN/Creat Ratio 13.7 RATIO (10-20); Calcium,Total 9.3 mg/dL (8.5-10.1); Chloride 110 mmol/L (98-107); Creatinine, Serum 0.88 mg/dL (0.55-1.02); EST Glomerular Filtration Rate 71 mL/min (>60); Est Glom Filt Rate - Afr Amer 86 mL/min (>60); Estimated Creatinine Clearance 72.87 ml/min; Glucose 102 mg/dL (74-106); Potassium 3.8 mmol/L (3.5-5.1); Sodium Level 141 mmol/L (136-145)
[2021-09-10 19:39] LABS: Mucous, Urine 0 SEEN /hpf (<or=2+)
[2021-09-10 19:50] LABS: Color, Urine Yellow (Yellow); Glucose, Dipstick Normal (Normal); Ketone-Dipstick Negative (Negative); Leukocyte Esterase-Dipstick 100 /ul (Negative); Nitrite-Dipstick Negative (Negative); Occult Blood-Urine Negative /ul (Negative); Protein-Dipstick Negative (Negative); Urine Bilirubin Dipstick Negative (Negative); Urine Clarity Sl. Cloudy (Clear); Urine Urobilinogen Normal (Normal); Urine pH 6.5 (5.0 - 8.0)
[2021-09-10 20:13] LABS: Bacteria RARE /hpf (None Seen); Squamous Epithelial Cells - UA 0-5 SEEN /hpf (5-10); White Blood Cells 0-5 SEEN /hpf (0-5)
[2021-09-10 20:14] LABS: Yeast-Urine RARE /hpf (None Seen)
[2021-09-10 20:15] LABS: Red Blood Cells-Urine 0 SEEN /hpf (0-5)
--- NOTE | 2021-09-10 20:30 | EDS_ITS ---
HPI HPI - GI History of Present Illness Chief Complaint: Abd Pain Detail of Chief Complaint: Left lower quadrant abdominal pain that started 4 to 5 hours prior to prese Informant: patient Abdominal Pain/Flank Pain Onset: Hours Context: Sudden Onset Timing: Continuous Quality: Aching Location: LLQ Current Severity: Moderate Maximum Severity: Severe Worsened by: Food Relieved by: Nothing Nausea/Vomiting/Emesis GI Symptom: Positive for Nausea; Negative for Vomiting Diarrhea/Melena/Hematochezia GI Symptom: Negative for Diarrhea, Melena and Hematochezia Associated Symptoms Associated Symptoms: Positive for - (There is no history of renal ureterolithiasis); Negative for Dysuria, Frequency, Hematuria and Urgency LMP: Postmenopausal Narrative Narrative: Patient is a 55-year-old woman who presents because of abrupt onset of left lower quadrant pain and flank pain. Initially states she cannot find a position of comfort. Now movement causes her pain. She denies dysuria, frequency, urgency or hematuria. She denies history of renal ureterolithiasis. She denies history of constipation. She denies diarrhea. She denies history of diverticulosis or diverticulitis. She is status post x2. She denies history of bowel obstruction or partial bowel obstruction. There is no history of trauma. She denies any constitutional symptoms i.e. fever, chills night sweats. She denies weight gain or weight loss. She denies ocular, visual or auditory symptoms. She denies cardiac or respiratory symptoms. Prior similar symptoms: No Recent Illness/Hospitalization: No PFSH PFSH Medical History Anxiety Bursitis disorder Enthesopathy Essential (primary) hypertension Fibromyalgia Junctional (helio) bradycardia Lightheadedness Obesity FRANCES on CPAP Home Medications multivitamin with folic acid 1 tab PO DAILY 04/02/17 [History Last Taken 07/18/17] cyclobenzaprine 5 mg tablet 5 mg PO TID PRN 02/29/20 [History Last Taken Unknown] lisinopril 5 mg tablet 5 mg PO DAILY tab 09/04/21 [History Last Taken 09/10/21] Allergy/AdvReac Type Severity Reaction Status Date / Time amoxicillin [From Augmentin] Allergy Hives Verified 09/10/21 18:47 clavulanic acid Allergy Hives Verified 09/10/21 18:47 [From Augmentin] tetracycline AdvReac Upset Verified 09/10/21 18:47 Stomach Family History Father Heart disease CAD (coronary artery disease) PTCA Mother Diabetes COPD (chronic obstructive pulmonary disease) Surgical History History of History of left heart catheterization (12/2015) History of loop recorder (11/17/17) Social History (Updated 09/10/21 @ 20:[address] Alonzo Gonzalez MD) household members: spouse Smoking Status: Never smoker alcohol intake: never caffeine: Yes Type: tea Number of servings: 3 ROS ROS ED Constitutional Constitutional ED: Denies chills, fever(s), subjective, sweats or weight loss ENT ENT ED: Denies ear pain, rhinorrhea or sore throat Cardiovascular Cardiovascular: Denies chest pain, palpitations or racing heartbeat Respiratory/Chest Respiratory/Chest: Denies cough, dyspnea or dyspnea on exertion Gastrointestinal Gastrointestinal: Reports abdominal pain and other Details: She denies change in color, consistency or caliber of her stool. ; Denies constipation, diarrhea, nausea or vomiting Genitourinary Genitourinary ED: Denies dysuria, hematuria or urinary frequency Musculoskeletal Musculoskeletal: Reports back pain; Denies arthralgias, myalgias or neck pain Integumentary Denies rash Neurologic Neurologic: Denies headache(s), paresthesias or weakness Psychiatric Psychiatric: Reports anxiety Endocrine Endocrinology: Denies polydipsia, polyphagia or polyuria EXAM Physical Exam Const Vital Signs: 09/10/21 18:47 Temperature 98.5 F Temperature Source Temporal Pulse Rate 81 Respiratory Rate 18 Blood Pressure 124/71 H Blood Pressure Mean 88 Pulse Ox 98 Oxygen Delivery Method Room Air Positive well nourished, well developed and obese General Appearance ED: well developed and NAD; Negative for pallor Nutritional Appearance: obese HEENT Reports moist mucous membranes HEENT Narrative: Nares patent. Ears normal. Mucosa is moist. Uvula is mid line. There is no erythema or exudate of the posterior pharynx. normocephalic and atraumatic Eyes PERRL and EOMs intact bilaterally General Eye ED: Negative for pale conjunctiva or scleral icterus Neck no lymphadenopathy, supple and no JVD Resp normal respiratory effort and clear to auscultation bilaterally Cardio regular rate, regular rhythm, S1 normal heart sound, S2 normal heart sound and no murmurs GI no masses; Negative for non-tender or non-distended Inspection: other Other Details: Left lower quadrant. Palpation: soft, tender LLQ, guarding LLQ and rebound tenderness present; Negative for rigid Back/Spine no CVA tenderness Cervical Spine: Negative for cervical spine tenderness Thoracic Spine / Upper Back: Negative for thoracic spinal tenderness Lumbar Spine / Lower Back: Negative for lumbar spinal tenderness Extremity full ROM General Extremety ED: Negative for edema or tenderness General Extremity: Negative for edema Neuro CN's II-XII intact bilaterally Sensorium / Orientation: alert, oriented to person, oriented to place and oriented to time Psych Mood & Affect: anxious Skin No no wounds Skin Narrative: Patient has a dressing where the loop recorder was removed today. General Skin Exam: Negative for jaundice or pallor Lesions: no lesions Rashes: no rashes MDM MDM MDM Narrative Medical decision making narrative: Differential would include urinary tract infection, ureterolithiasis, diverticulitis. White count differential unremarkable. Electrolyte panel is unremarkable. UA is normal. With tenderness, guarding and localized peritoneal findings concern patient has di verticulitis. Since this occurred abruptly concern for perforation. CT of the abdomen pelvis with IV contrast was ordered. She was medicated with Zofran and morphine. Lab Data Attestation: I reviewed the patient's lab results. Labs: Laboratory Results - last 24 hr 09/10/21 09/10/21 09/10/21 18:55 18:55 19:33 WBC 7.6 RBC 4.58 Hgb 14.6 Hct 42.3 MCV 92.4 MCH 31.9 MCHC 34.5 RDW Std Deviation 40.2 RDW Coeff of Jackie 11.9 Plt Count 356 MPV 8.8 Immature Gran % (Auto) 0.100 Neut % (Auto) 52.3 Lymph % (Auto) 35.7 [place] % (Auto) 9.7 Eos % (Auto) 1.8 Baso % (Auto) 0.4 Absolute Neuts (auto) 4.0 Absolute Lymphs (auto) 2.71 Nucleated RBC % 0 Sodium 141 Potassium 3.8 Chloride 110 H Carbon Dioxide 24.0 Anion Gap 7 BUN 12 Creatinine 0.88 Estim Creat Clear Calc 72.87 Est GFR (MDRD) Af Amer 86 Est GFR (MDRD) Non-Af 71 BUN/Creatinine Ratio 13.7 Glucose 102 Calcium 9.3 Urine Color Yellow Urine Clarity Sl. Cloudy Urine pH 6.5 Ur Specific [place] 1.010 Urine Protein Negative Urine Glucose (UA) Normal Urine Ketones Negative Urine Occult Blood Negative Urine Nitrite Negative Urine Bilirubin Negative Urine Urobilinogen Normal Ur Leukocyte Esterase 100 H Urine RBC 0 SEEN Urine WBC 0-5 SEEN Ur Squamous Epith Cells 0-5 SEEN Urine Bacteria RARE Urine Mucus 0 SEEN Urine Yeast RARE Radiography Diagnostic Testing: Clinical Impression(s) from Imaging Studies Abdomen/Pelvis CT 09/10/21 21:19 IMPRESSION: Stool and gas within colon. No acute or inflammatory disease or bowel obstruction. Electronically Signed: Quinton Emanuel MD at 22:12 EDT , CT was reviewed by me. There is no evidence of diverticulosis or diverticulitis. Awaiting formal read by radiologist. Discharge Plan Triage Chief Complaint: Abd Pain ED Provider: Alonzo Gonzalez Dx/Rx/DC Orders Clinical Impression: Obstipation Prescriptions: No Action cyclobenzaprine 5 mg tablet 5 mg PO TID PRN (Reason: Muscle Pain) RF: 0 lisinopril 5 mg tablet 5 mg PO DAILY RF: 0 multivitamin with folic acid 1 TABLET tablet 1 tab PO DAILY RF: 0 Primary Care Provider: Zay Alvarado Referrals: Zay Alvarado MD [Primary Care Provider] - 3-5 Days if not improving Activity Restrictions/Additional Instructions: 1. You need to increase the fiber in your diet 2. Recommend Metamucil or MiraLAX 3 times a day for 1 week then 2 times a day for a week followed by 1 glass of either MiraLAX or Metamucil daily Disposition Disposition: Home, Self Care
[2021-09-10] MEDS: Ondansetron 4 MG/2 ML Vial IV (20:44)
[2021-09-10] MEDS: Morphine 4 MG/ML Syringe IV (20:44)
--- NOTE | 2021-09-10 20:52 | ED.RN ---
Patient refusing CT scan due to claustrophobia. RN asked if she usually has medication prior to CT scan. Patient states I usually refuse the CT scan. Dr. Gonzalez notified.
--- NOTE | 2021-09-10 21:19 | CT_ITS ---
EXAM: CT ABDOMEN AND PELVIS WITH INTRAVENOUS CONTRAST CLINICAL INDICATION: Left lower quadrant abdominal pain TECHNIQUE: Helically acquired images were obtained of the abdomen and pelvis with intravenous contrast. CTDIvol = ( 17.27 ) mGy, DLP = ( 1126.14 ) mGycm This CT exam was performed using one or more of the following dose reduction techniques: automated exposure control, adjustment of the mA and/or kV according to patient size, and/or use of iterative reconstruction technique. This report was created using [employer] report generation technology. CONTRAST: IV 100mL Isovue-370 COMPARISON: None. FINDINGS: LOWER THORAX: Unremarkable. Lung bases are clear. No cardiomegaly. No significant pericardial effusion. ABDOMEN: LIVER: Unremarkable. Homogeneous. No focal mass. GALLBLADDER AND BILE DUCTS: Unremarkable. No calcified gallstones. No gallbladder distention or wall edema. No intra- or extrahepatic biliary ductal dilation. PANCREAS: Unremarkable. No focal cystic or solid mass. SPLEEN: Unremarkable. Normal size without focal cystic or solid mass. ADRENALS: Unremarkable. No nodules. KIDNEYS AND URETERS: Left kidney is positioned in the pelvis. No hydronephrosis or other renal abnormalities. Normal renal size and position. STOMACH AND BOWEL: Stool and gas within colon. No colitis or diverticulitis. No bowel obstruction. PELVIS: APPENDIX: No evidence of acute appendicitis. BLADDER: Unremarkable. REPRODUCTIVE: Unremarkable as visualized. No mass. ABDOMEN and PELVIS: INTRAPERITONEAL SPACE: Unremarkable. No ascites or other fluid collection. No free air. BONES/JOINTS: Degenerative changes of the spine. No suspicious lytic or blastic abnormality. SOFT TISSUES: Unremarkable. No discrete abdominal or pelvic wall hernia. VASCULATURE: Unremarkable. Abdominal aorta is non-dilated. LYMPH NODES: Unremarkable. No enlarged lymph nodes. CT/Abdomen/Pelvis W IV Cont ONLY IMPRESSION: Stool and gas within colon. No acute or inflammatory disease or bowel obstruction. Electronically Signed: Quinton Emanuel MD at 22:12 EDT ,
[2021-09-10] MEDS: Dicyclomine 10 MG Capsule 20 MG PO (22:27)
== END 2021-09-10 22:34 | disposition home or self-care (01) ==
PROVIDERS: Emergency Provider Emergency Medicine; PCP Family Medicine; Visit Provider Emergency Medicine
DX: R10.32 Left lower quadrant pain (principal); R00.1 Bradycardia, unspecified; R11.2 Nausea with vomiting, unspecified; I10 Essential (primary) hypertension; M79.7 Fibromyalgia; G47.33 Obstructive sleep apnea (adult) (pediatric); E66.9 Obesity, unspecified; F41.9 Anxiety disorder, unspecified; Z78.0 Asymptomatic menopausal state; Z79.899 Other long term (current) drug therapy
CPT/HCPCS: 33286; 74177; 80048; 81001; 85025; 96374; 96375; 99152; 99284; J7030; Q9967; A4216; J2405

== ENCOUNTER 2021-09-28 22:45 | Emergency (ER) | payer BC, MEDICARE, MEDICAID, SELFPAY ==
[2021-09-28 22:46] VITALS: BP 133/78; PULSE 84; RESP 16; TEMP 36.4; O2SAT 100; BMI 30.4
[2021-09-28 23:38] VITALS: BP 136/78; PULSE 89; RESP 12; O2SAT 99
[2021-09-28 23:41] LABS: Bacteria 0 SEEN /hpf (None Seen); Mucous, Urine 0 SEEN /hpf (<or=2+); Red Blood Cells-Urine 0 SEEN /hpf (0-5)
[2021-09-28 23:42] LABS: Absolute Lymphocyte Count 2.16 X10^3/uL (0.83-4.51); Absolute Neutrophil Count 3.4 X10^3/uL (2.0-7.7); Basophil# 0.02 X10^3/uL; Basophil% 0.3 % (0-1); Eosinophil# 0.45 X10^3/uL; Eosinophils% 6.8 % (0-5); Hematocrit 39.8 % (37-47); Hemoglobin 13.4 g/dL (12.0-15.0); Lymphocyte # 2.16 X10^3/ul (0.83-4.51); Lymphocyte % 32.6 % (19-41); Mean Corp Hgb Conc 33.7 g/dL (32-36); Mean Corpuscular Hgb 31.8 pg (27.0-32.0); Mean Corpuscular Volume 94.5 fL (81-99); Monocyte# 0.59 X10^3/uL; Monocyte% 8.9 % (0-10); NRBC Flagged by Analyzer 0 % (0-5); Neutrophil # 3.39 X10^3/uL (2.7-7.7); Neutrophil % 51.1 % (47-70); Platelet Count 321 K/mm3 (150-450); RBC Distribution Width CV 12.2 % (11.6-14.6); RBC Distribution Width SD 42.4 fl (35.1-43.9); Red Blood Count 4.21 M/mm3 (4.2-5.4); White Blood Count 6.6 K/mm3 (4.4-11.0)
[2021-09-28 23:46] LABS: Color, Urine Yellow (Yellow); Glucose, Dipstick Normal (Normal); Ketone-Dipstick Negative (Negative); Leukocyte Esterase-Dipstick 25 /ul (Negative); Nitrite-Dipstick Negative (Negative); Occult Blood-Urine Negative /ul (Negative); Protein-Dipstick Negative (Negative); Specific Gravity, Urine 1.005 (1.002-1.030); Urine Bilirubin Dipstick Negative (Negative); Urine Clarity Clear (Clear); Urine Urobilinogen Normal (Normal)
[2021-09-28 23:54] LABS: Squamous Epithelial Cells - UA 0-5 SEEN /hpf (5-10); White Blood Cells 0-5 SEEN /hpf (0-5)
[2021-09-29] MEDS: 0.9% Normal Saline 1,000 ML 999 ML IV (00:02)
[2021-09-29] MEDS: Ketorolac 30 MG/ML Syringe IV (00:02)
[2021-09-29] MEDS: Ceftriaxone 1 GM/50 ML BAG IV (00:03)
[2021-09-29 00:04] LABS: Lactic Acid 1.3 mmol/L (0.4-1.9)
[2021-09-29 00:05] LABS: AST(SGOT) 22 U/L (15-37); Alanine Aminotransfer ALT/SGPT 43 U/L (13-56); Albumin, Serum 3.7 g/dL (3.2-5.0); Alkaline Phosphatase 95 U/L (45-117); Anion Gap 7 (5-15); BUN 8 mg/dL (7-18); BUN/Creat Ratio 7.3 RATIO (10-20); Bilirubin, Direct 0.13 mg/dL (0.00-0.30); Calcium,Total 9.2 mg/dL (8.5-10.1); Chloride 107 mmol/L (98-107); EST Glomerular Filtration Rate 55 mL/min (>60); Est Glom Filt Rate - Afr Amer 66 mL/min (>60); Estimated Creatinine Clearance 58.29 ml/min; Globulin 3.2 g/dL (2.2-4.2); Glucose 103 mg/dL (74-106); Lipase 202 U/L (73-393); Potassium 3.6 mmol/L (3.5-5.1); Protein, Total 6.9 g/dL (6.4-8.2); Sodium Level 141 mmol/L (136-145)
--- NOTE | 2021-09-29 01:05 | EX.ED.DYSGE1 ---
HPI History of Present Illness Chief Complaint: Complaint Narrative Narrative: Patient is a 55-year-old female with past medical history of hypertension. She states she went to their facility yesterday secondary to having urinary frequency with slight dysuria and was diagnosed with a UTI. She states she was placed on Bactrim. She reports she has had 1 or 2 doses of this. She states that today she has noticed some bilateral low back pain. She denies any recent trauma or excessive activity. She denies any loss of bowel or bladder control or IV drug use. She states that she did not have back pain yesterday and now with the development of this she is concerned for a kidney infection and comes in for evaluation [facility] Medical History Anxiety Bursitis disorder Enthesopathy Essential (primary) hypertension Fibromyalgia Junctional (helio) bradycardia Lightheadedness Obesity FRANCES on CPAP Home Medications multivitamin with folic acid 400 mcg tablet 1 tab PO DAILY vitamin 04/02/17 [History Last Taken 07/18/17] cyclobenzaprine 5 mg tablet 5 mg PO TID PRN Muscle Pain 02/29/20 [History Last Taken Unknown] lisinopril 5 mg tablet 5 mg PO DAILY 09/04/21 [History Last Taken 09/10/21] methocarbamol 500 mg tablet 1,000 mg PO 4X/DAY PRN PRN Muscle pain/spasm 7 days #56 tabs 09/29/21 [Rx Last Taken Unknown] Allergy/AdvReac Type Severity Reaction Status Date / Time amoxicillin [From Augmentin] Allergy Hives Verified 09/28/21 22:46 clavulanic acid Allergy Hives Verified 09/28/21 22:46 [From Augmentin] tetracycline AdvReac Upset Verified 09/28/21 22:46 Stomach Family History Father Heart disease CAD (coronary artery disease) PTCA Mother Diabetes COPD (chronic obstructive pulmonary disease) Surgical History History of History of left heart catheterization (12/2015) History of loop recorder (11/17/17) Social History (Updated 09/10/21 @ 20:[address] Alonzo Gonzalez MD) household members: spouse Smoking Status: Never smoker alcohol intake: never caffeine: Yes Type: tea Number of servings: 3 ROS ROS ED Constitutional Constitutional ED: Denies chills or fever(s) ENT ENT ED: Denies sore throat Cardiovascular Cardiovascular: Denies chest pain Respiratory/Chest Respiratory/Chest: Denies cough or dyspnea Gastrointestinal Gastrointestinal: Reports nausea; Denies abdominal pain, diarrhea or vomiting Genitourinary Genitourinary ED: Denies dysuria or hematuria Musculoskeletal Musculoskeletal: Reports back pain; Denies myalgias Integumentary Denies rash Neurologic Neurologic: Denies headache(s) Hematologic/Lymphatic Hematologic/Lymphatic: Denies easy bleeding or easy bruising EXAM Physical Exam Const Vital Signs: 09/28/21 22:46 09/28/21 23:38 Temperature 97.6 F L Temperature Source Temporal Pulse Rate 84 89 Respiratory Rate 16 12 Blood Pressure 133/78 H 136/78 H Blood Pressure Mean 96 97 Pulse Ox 100 99 Oxygen Delivery Method Room Air Room Air Positive well nourished and well developed General Appearance ED: well developed Eyes PERRL and EOMs intact bilaterally Neck supple Resp normal respiratory effort and clear to auscultation bilaterally Cardio regular rate and regular rhythm GI non-distended GI Narrative: Abdomen is soft and nondistended with hyperactive bowel sounds. There is mild diffuse pain on palpation without voluntary guarding or rigidity. no pulsatile mass. Auscultation: hyperactive bowel sounds Palpation: soft Back/Spine Back/Spine Narrative: Bilateral pain palpation over top of the paralumbar muscle belly region that does worsen with extension and rotation Extremity normal to inspection Neuro oriented x3 and CN's II-XII intact bilaterally Sensorium / Orientation: alert Psych mental status grossly normal Skin no rashes or lesions noted Skin Narrative: No overlying soft tissue changes to suggest trauma or infection MDM MDM MDM Narrative Medical decision making narrative: Patient presented to the ER afebrile. She denied any risk factors for cauda equina or epidural abscess such as loss of bowel or bladder control or IV drug. She also denied any excessive activity or trauma and physical exam does correlate with this. She stated she is taking only essentially 1 days worth of antibiotics and therefore cannot states she has failed outpatient therapy. With concern for a progressing infection I did elect to check basic laboratory values. Her white count is normal there is no left shift no lactic acidosis. She has no signs of JOCELYNN. Her urine sample today shows some white blood cells but otherwise no infectious process. She was given IV hydration Rocephin and Toradol. On reevaluation she does report feeling better and remains hemodynamically stable. Therefore at this time there is no signs of acute kidney injury or urosepsis and there is no need for further work-up and she is safe for discharge Lab Data Attestation: I reviewed the patient's lab results. Labs: Laboratory Results - last 24 hr 09/28/21 09/28/21 09/28/21 23:35 23:35 23:35 WBC 6.6 RBC 4.21 Hgb 13.4 Hct 39.8 MCV 94.5 MCH 31.8 MCHC 33.7 RDW Std Deviation 42.4 RDW Coeff of Jackie 12.2 Plt Count 321 MPV 9.0 Immature Gran % (Auto) 0.300 Neut % (Auto) 51.1 Lymph % (Auto) 32.6 [place] % (Auto) 8.9 Eos % (Auto) 6.8 H Baso % (Auto) 0.3 Absolute Neuts (auto) 3.4 Absolute Lymphs (auto) 2.16 Nucleated RBC % 0 Sodium 141 Potassium 3.6 Chloride 107 Carbon Dioxide 27.0 Anion Gap 7 BUN 8 Creatinine 1.10 H Estim Creat Clear Calc 58.29 Est GFR (MDRD) Af Amer 66 Est GFR (MDRD) Non-Af 55 L BUN/Creatinine Ratio 7.3 L Glucose 103 Lactic Acid 1.3 Calcium 9.2 Total Bilirubin 0.30 Direct Bilirubin 0.13 AST 22 ALT 43 Alkaline Phosphatase 95 Total Protein 6.9 Albumin 3.7 Globulin 3.2 Lipase 202 Urine Color Urine Clarity Urine pH Ur Specific [place] Urine Protein Urine Glucose (UA) Urine Ketones Urine Occult Blood Urine Nitrite Urine Bilirubin Urine Urobilinogen Ur Leukocyte Esterase Urine RBC Urine WBC Ur Squamous Epith Cells Urine Bacteria Urine Mucus 09/28/21 23:35 WBC RBC Hgb Hct MCV MCH MCHC RDW Std Deviation RDW Coeff of Jackie Plt Count MPV Immature Gran % (Auto) Neut % (Auto) Lymph % (Auto) [place] % (Auto) Eos % (Auto) Baso % (Auto) Absolute Neuts (auto) Absolute Lymphs (auto) Nucleated RBC % Sodium Potassium Chloride Carbon Dioxide Anion Gap BUN Creatinine Estim Creat Clear Calc Est GFR (MDRD) Af Amer Est GFR (MDRD) Non-Af BUN/Creatinine Ratio Glucose Lactic Acid Calcium Total Bilirubin Direct Bilirubin AST ALT Alkaline Phosphatase Total Protein Albumin Globulin Lipase Urine Color Yellow Urine Clarity Clear Urine pH 7.0 Ur Specific [place] 1.005 Urine Protein Negative Urine Glucose (UA) Normal Urine Ketones Negative Urine Occult Blood Negative Urine Nitrite Negative Urine Bilirubin Negative Urine Urobilinogen Normal Ur Leukocyte Esterase 25 H Urine RBC 0 SEEN Urine WBC 0-5 SEEN Ur Squamous Epith Cells 0-5 SEEN Urine Bacteria 0 SEEN Urine Mucus 0 SEEN Discharge Plan Triage Chief Complaint: Complaint ED Provider: Quinton Dow Dx/Rx/DC Orders Clinical Impression: UTI (urinary tract infection), Back pain Instructions: Urinary Tract Infections in Women, ED Back and Neck Pain, General Prescriptions: New methocarbamol 500 mg tablet 1,000 mg PO 4X/DAY PRN PRN (Reason: Muscle pain/spasm) 7 Days Qty: 56 0RF No Action cyclobenzaprine 5 mg tablet 5 mg PO TID PRN (Reason: Muscle Pain) lisinopril 5 mg tablet 5 mg PO DAILY multivitamin with folic acid 1 TABLET tablet 1 tab PO DAILY Primary Care Provider: Zay Alvarado Referrals: Zay Alvarado MD [Primary Care Provider] - Activity Restrictions/Additional Instructions: Please continue the antibiotic prescribed by the other facility and add the Robaxin to help with muscle pain and spasm. Please return to the ER if you have worsening of symptoms or develop a fever over 100.4 or have any further concerns Disposition Disposition: Home, Self Care
[2021-09-29 01:19] VITALS: BP 136/79; PULSE 79; RESP 18; O2SAT 96
== END 2021-09-29 01:20 | disposition home or self-care (01) ==
PROVIDERS: Emergency Provider Emergency Medicine; PCP Family Medicine; Visit Provider Emergency Medicine
DX: N39.0 Urinary tract infection, site not specified (principal); I10 Essential (primary) hypertension; M54.50 Low back pain, unspecified; M79.7 Fibromyalgia; E66.9 Obesity, unspecified; G47.33 Obstructive sleep apnea (adult) (pediatric); Z79.899 Other long term (current) drug therapy
CPT/HCPCS: 80048; 80076; 81001; 83605; 83690; 85025; 96365; 96375; 99283; J7030

== ENCOUNTER 2021-11-26 19:43 | Emergency (ER) | payer BC, MEDICARE, MEDICAID, SELFPAY ==
[2021-11-26 19:44] VITALS: BP 139/86; PULSE 80; RESP 20; TEMP 37.4; O2SAT 94; BMI 31.7
[2021-11-26 20:16] VITALS: O2SAT 94
--- NOTE | 2021-11-26 20:16 | EKG12_ITS ---
Test Reason : CP Blood Pressure : / mmHG Vent. Rate : 085 BPM Atrial Rate : 085 BPM P-R Int : 144 ms QRS Dur : 080 ms QT Int : 350 ms P-R-T Axes : 050 006 062 degrees QTc Int : 416 ms Normal sinus rhythm Low voltage QRS Cannot rule out Anterior infarct , age undetermined Abnormal ECG Confirmed by NICHOLAS WHITE, SOHAN ([id number]), desk editor VIVEK PIERRE ([id number]) on 11/27/2021 8:22:32 AM Referred By: MEGAN Confirmed By:SOHAN PETERSON MD
--- NOTE | 2021-11-26 20:20 | RAD_ITS ---
STUDY: X-RAY CHEST REASON FOR EXAM: Female, 56 years old. CHEST PAIN chest pain TECHNIQUE: XR Chest 1 View COMPARISON: 08/03/2021 FINDINGS: There is no demonstrated pleural abnormality. Normal size heart. Normal mediastinum and verna. Normal visualized pulmonary arteries. Normal visualized aortic arch and descending thoracic aorta. Normal visualized thoracic spine. Normal visualized ribs, clavicles, and shoulders. There is no demonstrated abnormality of the visualized soft tissue structures of the upper abdomen. RAD/Chest 1 View (Portable) IMPRESSION: There are no acute findings. Electronically Signed: Ranjit Marquez MD at 20:32 EDT ,
[2021-11-26 20:23] VITALS: BP 133/79; PULSE 67; RESP 15; O2SAT 94
--- NOTE | 2021-11-26 20:27 | ED.VIS.CHEST ---
HPI History of Present Illness Chief Complaint: Chest Pain Narrative Narrative: Patient presents with chest pain and body aches and shortness of breath that she had today. She states her symptoms began yesterday with sinus pain and tooth ache that she gets with her sinus pain. She has nasal congestion and sinus pain on the left. She states she went to urgent care today and they told her to hold off on antibiotics because it is early in her illness. They did a COVID test but the results are still pending. She states she went home and took a nap, and awoke with chest pain and shortness of breath. She denies any nausea or vomiting. No diaphoresis. She called the [facility] back and they told her to call EMS and be evaluated for her chest pain and shortness of breath. Past medical history does include hypertension. She denies any exacerbating or alleviating factors to her chest pain but states it is more chest tightness. [facility] Medical History Anxiety Bursitis disorder Enthesopathy Essential (primary) hypertension Fibromyalgia Junctional (helio) bradycardia Lightheadedness Obesity FRANCES on CPAP Home Medications multivitamin with folic acid 400 mcg tablet 1 tab PO DAILY vitamin 04/02/17 [History Last Taken 07/18/17] cyclobenzaprine 5 mg tablet 5 mg PO TID PRN Muscle Pain 02/29/20 [History Last Taken Unknown] lisinopril 5 mg tablet 5 mg PO DAILY 09/04/21 [History Last Taken 09/10/21] albuterol sulfate 90 mcg/actuation aerosol inhaler (Ventolin HFA) 1 - 2 puff inhalation Q4H PRN PRN Wheezing #1 ea 11/26/21 [Rx Last Taken Unknown] oxybutynin chloride 5 mg tablet,extended release 24 hr 5 mg PO DAILY 11/26/21 [History Last Taken Unknown] Allergy/AdvReac Type Severity Reaction Status Date / Time amoxicillin [From Augmentin] Allergy Hives Verified 11/26/21 19:50 clavulanic acid Allergy Hives Verified 11/26/21 19:50 [From Augmentin] tetracycline AdvReac Upset Verified 11/26/21 19:50 Stomach Family History Father Heart disease CAD (coronary artery disease) PTCA Mother Diabetes COPD (chronic obstructive pulmonary disease) Surgical History History of History of left heart catheterization (12/2015) History of loop recorder (11/17/17) Social History household members: spouse Smoking Status: Never smoker alcohol intake: never caffeine: Yes Type: tea Number of servings: 3 ROS ROS ED ROS Narrative Constitutional: Positive fever this morning, no chills. HEENT: No sore throat. No neck pain. No loss of vision. Positive sinus pain on the left with congestion. Cardiovascular: Positive chest tightness/chest pain. No palpitations. No pedal edema. Respiratory: Positive cough, positive shortness of breath. Abdominal: No abdominal pain. No nausea. No vomiting. Genitourinary: No dysuria. No hematuria. Musculoskeletal: No myalgias. No arthralgias. Neurologic: No headaches. No dizziness. No lightheadedness. Skin: No rash. No change in color. Psychiatric: No depression. No anxiety. EXAM Physical Exam Narrative Exam Narrative: Afebrile. Vital signs noted. HEENT: Normocephalic. Atraumatic. PERRL, EOMI. Neck soft and supple. No point tenderness or step off. Cardiovascular: Regular rate and rhythm. No murmurs, rubs, or gallops appreciated. Respiratory: No tachypnea. Lungs clear to auscultation bilaterally. Gastrointestinal: Abdomen soft, nontender, with normoactive bowel sounds. No rebound or guarding. Neurological: Awake. Alert. Nonfocal, nonlateralizing. Skin: No rash. Normal color. No pallor. Musculoskeletal: No pedal edema. Full range of motion extremities. Const Vital Signs: 11/26/21 19:44 11/26/21 19:52 11/26/21 20:16 Temperature 99.4 F H Temperature Source Temporal Pulse Rate 80 Respiratory Rate 20 H Respiratory Effort Short of Breath Blood Pressure 139/86 H Blood Pressure Mean 103 Pulse Ox 94 94 Oxygen Delivery Method Room Air Room Air 11/26/21 20:23 11/26/21 22:00 Temperature Temperature Source Pulse Rate 67 69 Respiratory Rate 15 20 H Respiratory Effort Blood Pressure 133/79 H 129/69 H Blood Pressure Mean 97 89 Pulse Ox 94 96 Oxygen Delivery Method Room Air Room Air Heart Score History: Slightly/Non-Suspicious ECG: Normal Age: >45 - <65 years Risk Factors: 1 or 2 Risk Factors Troponin: </= Normal Limit Score: 2 MDM MDM MDM Narrative Medical decision making narrative: EKG interpreted by myself demonstrates normal sinus rhythm at 85 bpm without ectopy or acute ST changes. No STEMI. Chest pain work-up was pursued. She had already received aspirin by EMS. I do feel that her shortness of breath may be secondary to an upper respiratory infection. Chest x-ray in 1 view was obtained and interpreted by myself and it shows no acute process. No pneumonia. CBC is grossly normal with a normal white count of 8.5, hemoglobin normal at 14.0, normal platelet count. Electrolyte panel is grossly unremarkable except for chloride 109, normal BUN and normal creatinine. Initial high-sensitivity troponin negative at 6. Her COVID and influenza swabs are negative. At this point in time, I do feel that she has more of a URI and chest tightness/bronchitis. She was written a prescription for an albuterol inhaler. She will continue Tylenol and ibuprofen as needed for her body aches. She did receive Toradol intravenously for the body aches and states that she felt mildly improved. At this point in time, her delta troponin is pending. She will be signed out to the oncoming physician, Dr. Quinton Dow, who will check the troponin and as long as it is a negative delta, will discharge the patient as planned. She is in stable condition. Lab Data Attestation: I reviewed the patient's lab results. Labs: Laboratory Results - last 24 hr 11/26/21 11/26/21 20:06 20:06 WBC 8.5 RBC 4.47 Hgb 14.0 Hct 41.3 MCV 92.4 MCH 31.3 MCHC 33.9 RDW Std Deviation 41.9 RDW Coeff of Jackie 12.3 Plt Count 343 MPV 9.2 Immature Gran % (Auto) 0.400 Neut % (Auto) 62.5 Lymph % (Auto) 25.9 [place] % (Auto) 8.8 Eos % (Auto) 1.8 Baso % (Auto) 0.6 Absolute Neuts (auto) 5.3 Absolute Lymphs (auto) 2.21 Nucleated RBC % 0 Sodium 142 Potassium 3.6 Chloride 109 H Carbon Dioxide 25.0 Anion Gap 8 BUN 12 Creatinine 0.96 Estim Creat Clear Calc 66.01 Est GFR (MDRD) Af Amer 78 Est GFR (MDRD) Non-Af 64 BUN/Creatinine Ratio 12.5 Glucose 118 H Calcium 9.0 Troponin I High Sens 6 Radiography Diagnostic Testing: Clinical Impression(s) from Imaging Studies Chest X-Ray 11/26/21 20:20 IMPRESSION: There are no acute findings. Electronically Signed: Ranjit Marquez MD at 20:32 EDT Reading Location ID and State: [facility] / [place] , Service support , Discharge Plan Triage Chief Complaint: Chest Pain ED Provider: Jn Wan Dx/Rx/DC Orders Clinical Impression: Chest pain, Shortness of breath, URI (upper respiratory infection) Instructions: ED Chest Pain, Uncertain Cause, ED Dyspnea, ED URI, Viral, No Abx (Adult) Prescriptions: New albuterol sulfate [Ventolin HFA] 90 mcg/actuation HFA aerosol inhaler 1 - 2 puff inhalation Q4H PRN PRN (Reason: Wheezing) Qty: 1 0RF No Action cyclobenzaprine 5 mg tablet 5 mg PO TID PRN (Reason: Muscle Pain) lisinopril 5 mg tablet 5 mg PO DAILY multivitamin with folic acid 1 TABLET tablet 1 tab PO DAILY oxybutynin chloride 5 mg tablet extended release 24hr 5 mg PO DAILY Label Comments: TAKE 1 TABLET BY MOUTH ONCE DAILY Primary Care Provider: Zay Alvarado Referrals: Zay Alvarado MD [Primary Care Provider] - Disposition Disposition: Home, Self Care
[2021-11-26 20:39] LABS: Absolute Lymphocyte Count 2.21 X10^3/uL (0.83-4.51); Absolute Neutrophil Count 5.3 X10^3/uL (2.0-7.7); Basophil# 0.05 X10^3/uL; Basophil% 0.6 % (0-1); Eosinophil# 0.15 X10^3/uL; Eosinophils% 1.8 % (0-5); Hematocrit 41.3 % (37-47); Lymphocyte # 2.21 X10^3/ul (0.83-4.51); Lymphocyte % 25.9 % (19-41); Mean Corp Hgb Conc 33.9 g/dL (32-36); Mean Corpuscular Hgb 31.3 pg (27.0-32.0); Mean Corpuscular Volume 92.4 fL (81-99); Mean Platelet Vol. 9.2 fl (6.2-12.0); Monocyte# 0.75 X10^3/uL; Monocyte% 8.8 % (0-10); NRBC Flagged by Analyzer 0 % (0-5); Neutrophil # 5.34 X10^3/uL (2.7-7.7); Neutrophil % 62.5 % (47-70); Platelet Count 343 K/mm3 (150-450); RBC Distribution Width CV 12.3 % (11.6-14.6); RBC Distribution Width SD 41.9 fl (35.1-43.9); Red Blood Count 4.47 M/mm3 (4.2-5.4); White Blood Count 8.5 K/mm3 (4.4-11.0)
[2021-11-26] MEDS: Ketorolac 15 MG/ML Vial IV (20:48)
[2021-11-26 20:58] LABS: Anion Gap 8 (5-15); BUN 12 mg/dL (7-18); BUN/Creat Ratio 12.5 RATIO (10-20); Chloride 109 mmol/L (98-107); Creatinine, Serum 0.96 mg/dL (0.55-1.02); EST Glomerular Filtration Rate 64 mL/min (>60); Est Glom Filt Rate - Afr Amer 78 mL/min (>60); Estimated Creatinine Clearance 66.01 ml/min; Glucose 118 mg/dL (74-106); Potassium 3.6 mmol/L (3.5-5.1); Sodium Level 142 mmol/L (136-145); Troponin-I HS (w/2H Reflex) 6 pg/mL (3.0-54.0)
[2021-11-26 22:00] VITALS: BP 129/69; PULSE 69; RESP 20; O2SAT 96
--- NOTE | 2021-11-26 22:31 | ED.RN ---
PT REPORTS SHE DOES NOT WANT TO STAY TO HAVE THE 2ND TROPONIN DONE. DR CHIU AWARE
[2021-11-26 22:36] LABS: Reflex Troponin-HS? (from REC) Y
[2021-11-26 23:32] LABS: Troponin-I HS 9 pg/mL (3.0-54.0)
[2021-11-26 23:37] VITALS: BP 137/87; PULSE 65; RESP 14; O2SAT 94
== END 2021-11-26 23:50 | disposition home or self-care (01) ==
PROVIDERS: Emergency Provider Emergency Medicine; PCP Family Medicine; Visit Provider Emergency Medicine
DX: J06.9 Acute upper respiratory infection, unspecified (principal); R07.9 Chest pain, unspecified; I10 Essential (primary) hypertension; F41.9 Anxiety disorder, unspecified; M79.7 Fibromyalgia; G47.33 Obstructive sleep apnea (adult) (pediatric); E66.9 Obesity, unspecified; Z79.899 Other long term (current) drug therapy; Z68.31 Body mass index [BMI] 31.0-31.9, adult
CPT/HCPCS: 71045; 80048; 84484; 85025; 87428; 93005; 96374; 99285; A4216